=== PATIENT | female | born 1960 | race Caucasian/White ===

== ENCOUNTER 2025-04-13 10:13 | Outpatient (REF) | payer MEDICARE, SELFPAY ==
[2025-04-13 13:22] LABS: Appearance Urine Clear; Glucose Urine UA >=1000 mg/dL (Negative); MANUAL DIFF FLAG NO; PH 5.5 (5.0-9.0); Specific Gravity - Urine 1.025 (1.005-1.025); UMIC TRIGGER UACC YES
[2025-04-13 13:32] LABS: Hematocrit 46.3 % (37.0-47.0); Hemoglobin 15.2 g/dl (12.0-16.0); Imm Gran Abs Auto 0.03 X10*3/uL (0.00-0.03); Imm Gran Pct Auto 0.4 % (0.0-0.4); Lymphocytes Absolute Auto 2.0 X10*3/uL (1.2-4.9); Mean Corpuscular HGB Conc 32.8 g/dl (31.0-35.0); Mean Corpuscular Hemoglobin 28.1 pg (27.0-33.0); Mean Corpuscular Volume 85.6 fL (80.0-98.0); NRBC Abs Auto 0.000 X10*3/uL (0.0-0.012); NRBC Pct Auto 0.0 /100WBC (0.0-0.2); Platelet Count 287 X10*3/uL (160-400); Red Blood Count 5.41 X10*6/uL (4.20-5.50); White Blood Count 8.4 X10*3/uL (4.8-10.8)
[2025-04-13 14:01] LABS: Alanine Aminotransferase 20 U/L (0-31); Albumin Level 4.8 g/dL (3.5-5.0); Alkaline Phosphatase 83 U/L (39-117); Anion Gap 13 (12-20); Aspartate Amino Transferase 22 U/L (5-31); Blood Urea Nitrogen 17 mg/dL (9-16); Calcium 9.8 mg/dL (8.4-10.2); Carbon Dioxide 28 mmol/L (22-29); Chloride 100 mmol/L (96-108); Cholesterol 187 mg/dL (<200); Estimated Glomerular Filt Rate > 60; HDL Cholesterol 51 mg/dL (>40); Magnesium 2.2 mg/dL (1.6-2.6); Potassium 4.3 mmol/L (3.3-5.1); Sodium 137 mmol/L (135-145); Total Protein 7.8 g/dL (6.5-8.0); Triglycerides 136 mg/dL (<150)
[2025-04-13 14:23] LABS: Folate 6.4 ng/mL (> or = 4.0); Vitamin B12 1442 pg/mL (200-900)
[2025-04-13 14:46] LABS: Microalbum/Creatinine Ratio Ur 10.2 ug/mg cr (<30)
[2025-04-14 08:28] LABS: HBS Num1 1.30 mIU/mL (0-7.99); HBsAGNum1 0.46 S/CO (0.00-0.99); HIV Num 1 0.05 S/CO (0.00-0.99); Hepatitis B Surface Antigen Negative (Negative); ~HepC Num1 0.08 S/CO (0.00-0.79); ~Hepatitis B Surface Antibody NONREACTIVE (Nonreactive); ~Hepatitis C Antibody Nonreactive (Nonreactive)
[2025-04-18 10:33] LABS: VITAMIN D (1,25 OH) D3 35 pg/mL; Vit D (1,25-Dihydroxy) Total 35 pg/mL (18-72); Vitamin D (1,25 OH) D2 <8 pg/mL
== END 2025-04-13 10:14 | disposition home or self-care (01) ==
LOC: HO.HKASLDS 10:13
PROVIDERS: PCP Student in an Organized Health Care Education/Training Program; Visit Provider Student in an Organized Health Care Education/Training Program
DX: Z11.4 Encounter for screening for human immunodeficiency virus [HIV] (principal); I25.2 Old myocardial infarction; E11.9 Type 2 diabetes mellitus without complications; I83.90 Asymptomatic varicose veins of unspecified lower extremity; G47.10 Hypersomnia, unspecified; R06.83 Snoring; R53.83 Other fatigue; Z95.5 Presence of coronary angioplasty implant and graft
CPT/HCPCS: 36415; 80053; 80061; 81001; 82043; 82570; 82607; 82652; 82746; 83036; 83735; 84443; 85025; 86706; 86803; 87340; 87389; 99202

== ENCOUNTER 2025-04-13 10:13 | Outpatient (AMB) | payer MEDICARE, SELFPAY ==
--- NOTE | 2025-04-13 10:19 | MHC.PC.OV ---
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, Hypertension Returned Materials Inspector Required: No Accompanied by: Self / Same As Patient Allergies No Known Allergies Allergy (Verified 04/13/25 10:20) Tobacco use date assessed: 04/13/25 Fall risk assessment: 2 + Falls in past year Last assessed Fall Risk: 04/13/25 Dental Screening Dental Screen Date: 04/13/25 Did you have a dental visit in the last 12 months?: Yes Did you have a dental problem in the last 6 months where you did not have access to dental care?: No Was dental information given to patient?: Patient has dentist HPI HPI Comments History of Present Illness Details History of Present Illness The patient is a 64-year-old female presenting with a routine check-up and management of multiple chronic conditions. Type 2 Diabetes Mellitus: - The patient has a history of type 2 diabetes mellitus, managed with metformin and insulin therapy. - She reports frequent urinary tract infections, likely related to her diabetes. - The last hemoglobin A1c was not discussed, but blood work is planned to assess current control. Hypertension: - The patient has a history of hypertension, with elevated blood pressure noted during the visit. - She attributes the elevated reading to stress related to the visit. Gastroesophageal Reflux Disease (GERD): - The patient is on omeprazole for management of GERD. Asthma: - The patient uses fluticasone and salmeterol for asthma management. - She reports infrequent flare-ups and no recent emergency room visits for asthma exacerbations. Myocardial Infarction with stent placement: - The patient has a history of myocardial infarction with four stents placed, the first in 2019 and the most recent in 2021. - She experienced chest heaviness and arm discomfort recently, prompting an emergency room visit, but no acute issues were found. Anxiety and Depression: - The patient is prescribed alprazolam and fluoxetine for anxiety and depression. - She reports infrequent use of alprazolam, primarily during periods of heightened anxiety. Seasonal Allergies: - The patient reports severe seasonal allergies, previously managed with weekly allergy shots. - She has tried various antihistamines without relief. Iron Deficiency Anemia: - The patient has a history of iron deficiency anemia, managed with oral iron supplements twice daily. Varicose Veins: - The patient has varicose veins, which are occasionally itchy and irritating. - She has not seen a vascular surgeon and has difficulty tolerating compression stockings. History of Retinal Detachment: - The patient had surgery for a detached retina and has had regular eye exams since. Urinary Tract Infection (suspected): - The patient suspects a urinary tract infection and has been taking leftover antibiotics. Review of Systems - General: Reports fatigue and poor sleep quality. - Cardiovascular: Reports chest heaviness and arm discomfort recently. Denies recent palpitations or syncope. - Respiratory: Denies recent asthma exacerbations or dyspnea. - Gastrointestinal: Reports GERD managed with medication. Denies recent abdominal pain or changes in bowel habits. - Neurological: Denies recent headaches or dizziness. - Psychiatric: Reports anxiety and depression, managed with medication. Denies recent panic attacks. - Musculoskeletal: Reports recent fall with minor head injury. Denies ongoing pain or mobility issues. - Dermatological: Reports varicose veins with occasional itching. - Hematological: Reports history of iron deficiency anemia. - Allergic/Immunologic: Reports severe seasonal allergies, previously managed with allergy shots. 10-point ROS reviewed and negative except as noted in HPI Past Medical History - Type 2 Diabetes Mellitus, managed with metformin and insulin. - Hypertension, with recent elevated blood pressure noted. - Gastroesophageal Reflux Disease (GERD), managed with omeprazole. - Asthma, managed with fluticasone and salmeterol. - Myocardial Infarction with stent placement, four stents in total. - Anxiety and Depression, managed with alprazolam and fluoxetine. - Seasonal Allergies, previously managed with allergy shots. - Iron Deficiency Anemia, managed with oral iron supplements. - Varicose Veins, with occasional itching. - History of Retinal Detachment, with surgery performed. Health Maintenance - Routine blood work including hemoglobin A1c and lipid panel planned. - Referral to cardiology for follow-up on cardiac history. - Referral to podiatry for annual diabetic foot exam. - Mammogram due in 2023. - Colonoscopy not due for a couple of years, with previous polyps removed. - DEXA scan not due until next year. Physical Exam General: Well-appearing, in no acute distress. Vital signs: Blood pressure elevated today. HEENT: Normocephalic, atraumatic. PERRLA, EOMI. Conjunctiva clear, sclera anicteric. Oropharynx clear, mucous membranes moist. TMs intact bilaterally. Neck: Supple, no lymphadenopathy, no thyromegaly, no JVD or carotid bruits. Cardiovascular: RRR, normal S1/S2, no murmurs, rubs, or gallops. Peripheral pulses 2+ and symmetric. No edema. History of myocardial infarction with four stents placed. Respiratory: Lungs clear to auscultation bilaterally, no wheezes, rales, or rhonchi. Normal effort. Abdomen: Soft, non-tender, non-distended. Normoactive bowel sounds. No hepatosplenomegaly, no masses. MSK: Full range of motion, no joint swelling or deformity. Normal gait. Reports a fall last month with a bruise on the head. Skin: Warm, dry, intact. No rashes, lesions, or pallor. Presence of varicose veins, sometimes irritating or itchy. Neuro: Alert and oriented x3. Cranial nerves II-XII intact. Strength 5/5 throughout. Sensation intact. Reflexes 2+ symmetric. Normal coordination and gait. Psych: Appropriate mood and affect. Normal judgment and insight. Reports anxiety and depression, taking fluoxetine and alprazolam as needed. Plan 1. Type 2 Diabetes Mellitus - Plan to perform routine blood work including hemoglobin A1c to assess current control. - Referral to podiatry for annual diabetic foot exam. 2. Hypertension - Monitor blood pressure and consider lifestyle modifications to manage stress-related elevations. 3. Gastroesophageal Reflux Disease (Gerd) - Continue current management with omeprazole. 4. Asthma - Continue current management with fluticasone and salmeterol. 5. Myocardial Infarction With Stent Placement - Referral to cardiology for follow-up on cardiac history. 6. Anxiety And Depression - Encourage contact with behavioral health for further evaluation and management. 7. Seasonal Allergies - Consider re-evaluation for allergy shots as previous antihistamines were ineffective. 8. Iron Deficiency Anemia - Continue current management with oral iron supplements. 9. Varicose Veins - Consider referral to vascular surgery if symptoms worsen and insurance coverage is confirmed. 10. Urinary Tract Infection (Suspected) - Plan to confirm diagnosis with urinalysis and culture if symptoms persist. Discussion Notes During the visit, we discussed the management of the patient's chronic conditions, including diabetes, hypertension, and asthma. I recommended routine blood work to assess diabetes control and referred the patient to cardiology for follow-up on her cardiac history. We also talked about the importance of managing seasonal allergies and the potential need for allergy shots. I encouraged the patient to contact behavioral health for further evaluation of anxiety and depression. Additionally, we discussed the possibility of a vascular surgery referral for varicose veins if symptoms worsen and insurance coverage is confirmed. Patient was informed and verbally consented to the use of an ambient scribe for clinic note documentation during this visit. Patient Instructions - Follow up with cardiology for cardiac history evaluation. - Schedule routine blood work to monitor diabetes control. - Contact behavioral health for anxiety and depression management. - Consider re-evaluation for allergy shots if seasonal allergies persist. - Monitor blood pressure and manage stress to control hypertension. - Continue taking prescribed medications as directed. Total time spent caring for the patient today was 30 minutes. This includes time spent before the visit reviewing the chart, time spent documenting, and time spent, medications, performing a medically necessary evaluation, counseling on diagnoses, care coordination, ordering appropriate tests. FORMERLY [facility], [facility] Medical History (Updated 04/13/25 @ 10:54 by Sudhir Plaza MD) Fatigue Snoring Varicose veins of ankle Diabetes type 2 History of myocardial infarction Surgical History (Updated 04/13/25 @ 10:42 by Sudhir Plaza MD) History of coronary artery stent placement Family History (Updated 04/13/25 @ 10:33 by Johnson Diaz MA) Father High blood pressure Mother Diabetes High blood pressure Colon cancer Liver cancer Social History (Updated 04/13/25 @ 10:34 by Johnson Diaz MA) Housing: House Alcohol intake: current Alcohol intake frequency: does not drink Patient Tobacco Use Status: Never used Tobacco service: No Current occupational status: retired Cognitive needs: No Hearing needs: No Vision needs: Yes (reading glasses) Questionnaire PHQ-9 Over the last 2 weeks, how often have you been bothered by any of the following problems? 1. Little interest or pleasure in doing things: not at all 2. Feeling down, depressed, or hopeless: not at all 3. Trouble falling or staying asleep, or sleeping too much: several days 4. Feeling tired or having little energy: several days 5. Poor appetite or overeating: several days 6. Feeling bad about yourself - or that you are a failure or have let yourself or your family down: not at all 7. Trouble concentrating on things, such as reading the newspaper or watching television: not at all 8. Moving or speaking so slowly that other people could have noticed. Or the opposite - being so fidgety or restless that you have been moving around a lot more than usual: not at all 9. Thoughts that you would be better off or of hurting yourself in some way: not at all Total score: 3 Source: Developed by Drs. Ryan Corona, Sarah Wood, Rah Loco and colleagues, with an educational martha from [employer]. Thrive Questionnaire I am a: Patient What is your living situation today?: I have a steady place to live Within the past 12 months, did the food you bought not last and you didn't have the money to get more?: Never true Within the past 12 months, did you worry whether your food would run out before you got money to buy more?: Never true Do you have trouble paying for medicines?: No Do you have trouble getting transportation to medical appointments?: No Do you have trouble paying your heating and electricity bill?: No Do you have trouble taking care of your child, family member or friend?: No Are you currently unemployed and looking for a job?: No Are you interested in more education?: No Please select the resources that you would like help with: None Currently or been in a relationship where the following occur: No concerns reported THRIVE Score: 0 AUDIT C Alcohol Use Questionnaire (AUDIT-C) 1. How often do you have a drink containing alcohol?: Never Total Score: 0 MARYJANE-7 AMB Questionnaire MARYJANE-7 Feeling nervous, anxious, or on edge: 0 = Not at all Not being able to stop or control worryin = Not at all Worrying too much about different things: 0 = Not at all Trouble relaxin = Not at all Being so restless that it is hard to sit still: 0 = Not at all Becoming easily annoyed or irritable: 1 = Several days Feeling afraid as if something awful might happen: 1 = Several days Total MARYJANE-7 score (0-4 normal; 5-9 mild; 10-14 moderate; 15-21 severe): 2 Source: Developed by Drs. Ryan Corona, Sarah Wood, Rah Loco and colleagues, with an educational martha from [employer]. Physical exam (Primary Care) Vital Signs: Last Vital Signs Temp 98.2 F 04/13/25 10:22 Pulse 71 04/13/25 10:22 Resp 16 04/13/25 10:22 BP 176/90 H 04/13/25 10:22 Pulse Ox 95 04/13/25 10:22 Oxygen Delivery Method Room Air 04/13/25 10:22 BMI result Body Mass Index 29.9 Tobacco/Smoking Status: Tobacco use Status Tobacco use date assessed 04/13/25 04/13/25 10:37 Patient Tobacco Use Status Never used Tobacco 04/13/25 10:37 PHQ-9: PHQ-9 Score PHQ-9: Total score 3 04/13/25 10:37 Currently or been in a relationship where the following occur: No concerns reported Coding Level of Care Code New Pt Level 4 (80275) Diagnoses Diabetes type 2 E11.9 History of myocardial infarction I25.2 History of coronary artery stent placement Z95.5 Varicose veins of ankle I83.90 Snoring R06.83 Fatigue R53.83 Asthma J45.909 Hypertension I10 GERD (gastroesophageal reflux disease) K21.9 Anxiety and depression F41.9; F32.A Seasonal allergies J30.2 Iron deficiency anemia D50.9 History of retinal detachment Z86.69 Dysuria R30.0 Assessment & Plan Assessment & Plan (1) Diabetes type 2: Code(s): E11.9 - Type 2 diabetes mellitus without complications Category: Medical (2) History of myocardial infarction: Code(s): I25.2 - Old myocardial infarction Category: Medical (3) History of coronary artery stent placement: Code(s): Z95.5 - Presence of coronary angioplasty implant and graft Category: Surgical (4) Varicose veins of ankle: Code(s): I83.90 - Asymptomatic varicose veins of unspecified lower extremity Category: Medical (5) Snoring: Code(s): R06.83 - Snoring Category: Medical (6) Fatigue: Code(s): R53.83 - Other fatigue Category: Medical (7) Asthma: Code(s): J45.909 - Unspecified asthma, uncomplicated (8) Hypertension: Code(s): I10 - Essential (primary) hypertension (9) GERD (gastroesophageal reflux disease): Code(s): K21.9 - Gastro-esophageal reflux disease without esophagitis (10) Anxiety and depression: Code(s): F41.9 - Anxiety disorder, unspecified; F32.A - Depression, unspecified (11) Seasonal allergies: Code(s): J30.2 - Other seasonal allergic rhinitis (12) Iron deficiency anemia: Code(s): D50.9 - Iron deficiency anemia, unspecified (13) History of retinal detachment: Code(s): Z86.69 - Personal history of other diseases of the nervous system and sense organs (14) Dysuria: Code(s): R30.0 - Dysuria Plan Orders: Orders Complete Blood Count Auto Diff Today Z13.9 - Encounter for screening, unspecified Hemoglobin A1c Today Z13.9 - Encounter for screening, unspecified Hepatitis B Surface Antibody Today Z13.9 - Encounter for screening, unspecified Hepatitis B Surface Antigen Today Z13.9 - Encounter for screening, unspecified Hepatitis C Antibody Today Z13.9 - Encounter for screening, unspecified HIV Ab/Ag Today Z13.9 - Encounter for screening, unspecified TSH reflex Free T4 Today Z13.9 - Encounter for screening, unspecified Microalbumin, Random (w Creat) Today Z13.9 - Encounter for screening, unspecified Vitamin D 1,25 dihydroxy Today Z13.9 - Encounter for screening, unspecified Comprehensive Met. Panel Today Z13.9 - Encounter for screening, unspecified Lipid Panel Today Z13.9 - Encounter for screening, unspecified Magnesium Today Z13.9 - Encounter for screening, unspecified UA CC w/rflx Micro + Cult Today Z13.9 - Encounter for screening, unspecified Vitamin B12 and Folate Today Z13.9 - Encounter for screening, unspecified MM screening mammo BI Today Z12.31 - Encounter for screening mammogram for malignant neoplasm of breast RT home sleep study Today G47.10 - Hypersomnia, unspecified, R06.83 - Snoring, R53.83 - Other fatigue Referrals Vascular Surgery Referral I83.90 - Asymptomatic varicose veins of unspecified lower extremity Cardiology Referral I25.2 - Old myocardial infarction, Z95.5 - Presence of coronary angioplasty implant and graft Podiatry Referral E11.9 - Type 2 diabetes mellitus without complications Medications: New atorvastatin 80 mg PO DAILY 90 tabs 0RF fluoxetine 20 mg PO DAILY 90 caps 0RF carvedilol 6.25 mg PO BID 180 tabs 0RF losartan 25 mg PO DAILY 90 tabs 0RF
[2025-04-13 10:22] VITALS: BP 176/90; PULSE 71; RESP 16; TEMP 36.8; O2SAT 95; BMI 29.9
--- OUTSIDE RECORDS SUMMARY | 2025-04-13 12:11 | XMS_ITS | Continuity of Care Document ---
[facility] Address [address] [address] Problems Condition ICD9 code ICD10 code SNOMED code Start Date End Date S tatus Encounter for screening for other metabolic disorders Z13.228 Results No Results Allergies, adverse reactions, alerts No known allergies and adverse reactions Medications No administered medications reported Vital Signs No vital signs reported Social History No smoking Hx information available
--- OUTSIDE RECORDS SUMMARY | 2025-04-13 12:11 | XMS_ITS | Clinical Summary ---
Author Organization [facility] Address [address] [place] [address] Care Team Providers Care Senior Analytic Consultant Name Role Phone Aleksandra Sanchez MD Primary Care Provider [phone] Surgical History Surgery Date Site/Laterality Comments COLONOSCOPY 09/21/2016 PROCEDURE: HISTORICAL COLONOSCOPY; COMMENT: Sessile polyp, diverticulosis. Repeat [address] White HERNIA REPAIR 10/29/2016 PROCEDURE: HISTORICAL HERNIA REPAIR/DEEPAK; COMMENT: repair multiple incarcerated recurrent incisonal hernias SECTION PROCEDURE: HISTORICAL UPPER GASTROINTESTINAL ENDOSCOPY 09/21/2016 PROCEDURE: UPPER GI ENDOSCOPY/EXAM; COMMENT: Normal HERNIA REPAIR 11/2014 PROCEDURE: HISTORICAL HERNIA REPAIR/UMB PARTIAL HYSTERECTOMY 1999 PROCEDURE: IA SUPRACERVICAL ABDL HYSTER W/WO RMVL TUBE OVARY; COMMENT: for menorrhagia. date approximate. OVARIES WERE LEFT IN PLACE OTHER SURGICAL HISTORY 06/10/2019 PROCEDURE: ---- OTHER ----; COMMENT: Salvador. PCI s/p ROSELINE x2 to RCA mid and distal Medical History Medical History Date Comments DM (diabetes mellitus), type 2 with renal complications (CMS/HCC V24, CMS/HCC V28) 10/02/2017 DX:DM (diabetes mellitus), t ype 2 with renal complications (HCC) Proteinuria 10/02/2017 DX:Proteinuria Iron deficiency anemia due t o chronic blood loss 10/02/2017 DX:Iron deficiency anemia du e to chronic blood loss Depression 10/02/2017 DX:Depression Asthma 10/02/2017 DX:Asthma GERD with esophagitis 10/02/2017 DX:GERD wi th esophagitis Hypertension 10/02/2017 DX:Hypertension Adrenal nodule (CMS/HCC V24) 10/02/2017 DX: Adrenal nodule (HCC); COMMENT: 07/2016 CT, rec f/u 6-12 mo's Diverticulosis 10/02/2017 DX:Diverticulosi s Fatty liver 10/02/2017 DX:Fatty liver Colon polyp 10/02/2017 DX:Colon polyp STEMI (ST elevation myocardi al infarction) (CMS/HCC V24, CMS/HCC V28) 06/10/2019 DX:STEMI (ST el evation myocardial infarction) ([facility]); COMMENT: Salvador PCI. 99% mid RCA occlusion and 80% distal RCA occulsion and underwent PCI with ROSELINE x2. Oumou was also found to have additional 70% occlusion to the LAD which will be treated with staged PCI. Family History Medical History Relation Name Comments No Known Problems Aunt Hypertension Brother Other: Other Brother detached retina Brain Aneurysm Father of aorti c aneurysm, Hyperlipidemia,Hypertension Colon cancer Mother Diabetes, Hyper tension, Hypothyroidism, CVA Glaucoma Mother No Known Problems Other Asthma Sister Hypertension Sister Macular degeneration Sister No Known Problems Uncle Blindness Neg Hx Breast cancer Neg Hx Cataracts Neg Hx Strabismus Neg Hx Relation Name Status Comments Aunt Brother Father Mother Other Sister Uncle Social History Tobacco Use Types Packs/Day Years Used Date Smoking Tobacco: Former Cigarettes Smokeless Tobacco: Never Alcohol Use Standard Drinks/Week Comments No 0 (1 standard drink = 0.6 oz pur e alcohol) Comments Unknown Sex and Gender Information Value Date Recorded Sex Assigned at Not on file Legal Sex Female 4:36 PM EST Gender Identity Not on file Sexual Orientation Not on file Obstetrics History Plan of Treatment Health Maintenance Due Date Last Done Comments Diabetes: Annual GFR (Glomerular Filtration Rate) 1960 Diabetes: Annual Foot Exam 1970 Diabetes: Annual Retina Eye Exam 1970 Hepatitis A Vaccines (1 of 2 - Risk 2-dose series) 1979 Cervical Cancer Screening: P ap Smear 1981 Zoster Vaccines (1 of 2) 2010 Pneumococcal Vaccine: 50+ Years (2 of 2 - PCV) 09/01/2019 09/01/2018 Breast Cancer Screening 03/24/2020 03/24/20 18, 02/21/2017 Hepatitis B Vaccines (1 of 3 - Risk 3-dose series) 2020 RSV Immunization Adult Patients (1 - Risk 60-74 years 1-dose series) 2020 Cholesterol Screening (Lipid Panel) 05/09/2024 Diabetes: Annual Urine Albumin-Creatinine Ratio (uACR) 05/09/2024 Diabetes: Blood Sugar Contro l Test (HGBA1C) 05/09/2024 HIV Screening 05/09/2024 Hepatitis C Screening 05/09/2024 Hypertension/CHF/CAD Annual BMP Blood Test 05/09/2024 Social Influencers of Health Screening 05/09/2024 Depression Screening 07/08/2024 COVID-19 Vaccine (1 - 2023-2 5 season) 2025 Influenza Vaccine (#1) 2025 DTaP,Tdap,and Td Vaccines (2 - Td or Tdap) 09/01/2028 09/01/2018 Colorectal Cancer Screening: Colonoscopy 09/17/2034 09/17/2024 HIB Vaccines Aged Out No longer eligi ble based on patient's age to complete this topic HPV Vaccines Aged Out No longer eligi ble based on patient's age to complete this topic IPV Vaccines Aged Out No longer eligi ble based on patient's age to complete this topic MMR Vaccines Aged Out No longer eligi ble based on patient's age to complete this topic Meningococcal ACWY Vaccine Aged Out N o longer eligible based on patient's age to complete this topic Meningococcal B Vaccine Aged Out No l onger eligible based on patient's age to complete this topic RSV Immunization Patients Under 20 months Aged Out No longer eligible b ased on patient's age to complete this topic Varicella Vaccines Aged Out No longer eligible based on patient's age to complete this topic Procedures Procedure Name Priority Date/Time Associated Diagnosis Comments EXTERNAL COLONOSCOPY REPORT Routine 09/17/2024 3:10 PM EDT SCR MAMMO BI INCL CAD Routine 03/24/2018 8:11 AM EDT Encounter for screening mammogram for malignant neoplasm of breast from Last 3 Months or Most Recently Relevant to Health Maintenance Results * External Colonoscopy Report (09/17/2024 3:10 PM EDT) Anatomical Region Laterality Modality Endoscopy us Historical Provider GI~PROCEDURE ORDERABLES F inal Result * SCR MAMMO BI INCL CAD (03/24/2018 8:11 AM EDT) Anatomical Region Laterality Modality Radiographic Isabella ging 02/21/2017 8:33 AM EDT Narrative 03/24/2018 8:58 AM EDT This is a summary report. The complete report is available in the patient's medical record. If you cannot access the medical record, please contact the sending organization for a detailed fax or copy. Full field digital screening mammography, reviewed with CAD and compared to previous. The breasts are composed of fatty and fibroglandular tissue. No suspicious mass, architectural distortion or suspicious calcifications are identified. IMPRESSION: : No mammographic evidence of malignancy. BIRADS 1-Negative; N. 5 year breast cancer risk assessment 0.9 % Lifetime breast cancer risk assessment 5.7 % Breast cancer risk category Low (<15%) Procedure Note Mynor Fortune MD - 06/26/2022 This is a summary report. The complete report is available in thepatient's medical record. If you cannot access the medical record, pleasecontact the sending organization for a detailed fax or copy. Full field digital screening mammography, reviewed with CAD and comparedto previous. The breasts are composed of fatty and fibroglandular tissue.No suspicious mass, architectural distortion or suspicious calcificationsare identified. IMPRESSION: : No mammographic evidence of malignancy. BIRADS 1-Negative; N. 5 year breast cancer risk assessment 0.9 % Lifetime breast cancer risk assessment 5.7 % Breast cancer risk category Low (<15%) Aleksandra Sanchez MD IMG XR PROCEDURES Final Result from Last 3 Months or Most Recently Relevant to Health Maintenance Care Teams Senior Analytic Consultant Relationship Specialty Start Date End Date Aleksandra Sanchez MD PCP - General Internal Medicine 08/28/17
== END 2025-04-13 11:00 | disposition home or self-care (01) ==
LOC: HO.HMCFMS 10:15
PROVIDERS: PCP Student in an Organized Health Care Education/Training Program; Visit Provider Student in an Organized Health Care Education/Training Program
DX: E11.9 Type 2 diabetes mellitus without complications (principal); I25.2 Old myocardial infarction; Z95.5 Presence of coronary angioplasty implant and graft; I83.90 Asymptomatic varicose veins of unspecified lower extremity; R06.83 Snoring; R53.83 Other fatigue; J45.909 Unspecified asthma, uncomplicated; I10 Essential (primary) hypertension; K21.9 Gastro-esophageal reflux disease without esophagitis; F41.9 Anxiety disorder, unspecified; F32.A Depression, unspecified; J30.2 Other seasonal allergic rhinitis; D50.9 Iron deficiency anemia, unspecified; Z86.69 Personal history of other diseases of the nervous system and sense organs; R30.0 Dysuria

== ENCOUNTER 2025-04-27 13:09 | Outpatient (AMB) | payer MEDICARE, SELFPAY ==
[2025-04-27 13:13] VITALS: BP 135/74; PULSE 70; RESP 16; TEMP 36.7; O2SAT 95; BMI 30.1
--- NOTE | 2025-04-27 13:13 | A.OFFPC_ITS ---
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 Accompanied by: Self / Same As Patient Allergies No Known Allergies Allergy (Verified 04/27/25 13:14) Tobacco use date assessed: 04/27/25 Fall risk assessment: 2 + Falls in past year Last assessed Fall Risk: 04/13/25 Dental Screening Dental Screen Date: 04/27/25 Did you have a dental visit in the last 12 months?: Yes Did you have a dental problem in the last 6 months where you did not have access to dental care?: No Was dental information given to patient?: Patient has dentist HPI HPI Comments History of Present Illness Details Consent Patient was informed and verbally consented to the use of an ambient scribe for clinic note documentation during this visit. History of Present Illness The patient is a 64-year-old female presenting for follow-up on her diabetes management and to discuss lab results. Type 2 Diabetes Mellitus: The patient has a history of type 2 diabetes mellitus, with her last hemoglobin A1c recorded at 6.9%. She has been managing her condition with insulin, metformin, and tirzepatide (Mounjaro), but has recently stopped taking Farxiga due to running out of the medication. Her diabetes management has been complicated by a previous A1c level over 12%, which she self-managed by titrating her insulin dose. The patient reports no recent hypoglycemic events and her morning blood glucose was last recorded at 130 mg/dL. Detached Retina: The patient experienced a detached retina in her right eye, which required surgical intervention in August. She reports incomplete vision recovery post- surgery. Hyperlipidemia: The patient has hyperlipidemia with an LDL level of 109 mg/dL, despite being on the maximum dose of atorvastatin and ezetimibe. She has been advised to consider lifestyle modifications to further reduce her LDL levels. History of Myocardial Infarction: The patient has a history of myocardial infarction, which occurred in 2019. Following the event, she was started on Farxiga for cardiovascular protection. Surgical History: - Retinal detachment surgery on the righ t eye in August Medications: - Insulin 14 units at night for diabetes management - Metformin 500 mg twice daily for diabe annette management - Tirzepatide (Mounjaro) 15 mg for diabe annette management - Atorvastatin 80 mg for hyperlipidemia - Ezetimibe 10 mg for hyperlipidemia - Farxiga (recently stopped due to runni ng out) Social History: - The patient recently [facility], which has impacted her diabetes management. Diagnostic Results: - Labs: Hemoglobin A1c increased from 6. 4% to 6.9% - Labs: LDL cholesterol at 109 mg/dL - Labs: Vitamin B12 level at 1442 pg/mL - Labs: Potassium level at 4.3 mmol/L Review of Systems - Endocrine: Reports stable blood glucos e levels, denies hypoglycemic events. - Ophthalmologic: Reports incomplete vis ion recovery in the right eye post- retinal detachment surgery. 10-point ROS reviewed and negative excep t as noted in HPI Past Medical History - Type 2 Diabetes Mellitus - Detached Retina - Hyperlipidemia - History of Myocardial Infarction - Tourette Syndrome Health Maintenance - Recommended Hepatitis B vaccination se [facility] for type 2 diabetics Physical Exam General: Well-appearing, in no acute distress. Vital signs: Within normal limits. HEENT: Normocephalic, atraumatic. PERRLA, EOMI. Conjunctiva clear, sclera anicteric. Oropharynx clear, mucous membranes moist. TMs intact bilaterally. Neck: Supple, no lymphadenopathy, no thyromegaly, no JVD or carotid bruits. Cardiovascular: RRR, normal S1/S2, no murmurs, rubs, or gallops. Peripheral pulses 2+ and symmetric. No edema. Respiratory: Lungs clear to auscultation bilaterally, no wheezes, rales, or rhonchi. Normal effort. Abdomen: Soft, non-tender, non-distended. Normoactive bowel sounds. No hepatosplenomegaly, no masses. MSK: Full range of motion, no joint swelling or deformity. Normal gait. Skin: Warm, dry, intact. No rashes, lesions, or pallor. Neuro: Alert and oriented x3. Cranial nerves II-XII intact. Strength 5/5 throughout. Sensation intact. Reflexes 2+ symmetric. Normal coordination and gait. Psych: Appropriate mood and affect. Normal judgment and insight. Plan 1. Type 2 Diabetes Mellitus - Plan to discontinue insulin and contin ue metformin and tirzepatide (Mounjaro). - Reintroduce Farxiga for additional gly cemic control and cardiovascular benefits. - Repeat hemoglobin A1c in three months to assess glycemic control. 2. Detached Retina - Referral to technical fellow for follow -up on retinal detachment surgery. 3. Hyperlipidemia - Continue atorvastatin and ezetimibe th erapy. - Encourage lifestyle modifications to f urther reduce LDL levels. 4. History Of Myocardial Infarction - Continue Farxiga for cardiovascular pr otection. Discussion Notes I discussed with the patient the plan to discontinue insulin due to her stable A1c levels and continue with metformin and tirzepatide (Mounjaro). We also talked about reintroducing Farxiga for its benefits in glycemic control and cardiovascular protection. I recommended a follow-up with an technical fellow for her retinal detachment and emphasized the importance of lifestyle changes to manage her hyperlipidemia. Patient Instructions - Stop taking insulin as discussed. - Continue taking metformin and tirzepat efrain (Mounjaro) as prescribed. - Reintroduce Farxiga as per prescriptio n. - Schedule a follow-up appointment with an technical fellow for your eye. - Focus on lifestyle changes to help red uce LDL cholesterol levels. Medical Decision Making The decision to discontinue insulin was based on the patient's stable A1c levels and the presence of effective oral medications like metformin and tirzepatide (Mounjaro). Reintroducing Farxiga was considered beneficial for both glycemic control and cardiovascular protection, given the patient's history of myocardial infarction. Lifestyle modifications were emphasized to manage hyperlipidemia, as the patient is already on maximum lipid-lowering therapy. Total time spent caring for the patient today was 30 minutes. This includes time spent before the visit reviewing the chart, time spent documenting, and time spent reviewing laboratory results, diagnostic imaging, medications, performing a medically necessary evaluation, counseling on diagnoses, care coordination, ordering appropriate tests, ordering appropriate medications. [facility] Medical History (Updated 04/27/25 @ 13:25 by Sudhir Plaza MD) Detached retina, right Fatigue Snoring Varicose veins of ankle Diabetes type 2 History of myocardial infarction Surgical History (Updated 04/13/25 @ 10:42 by Sudhir Plaza MD) History of coronary artery stent placement Family History (Updated 04/13/25 @ 10:33 by Johnson Diaz MA) Father High blood pressure Mother Diabetes High blood pressure Colon cancer Liver cancer Social History (Updated 04/13/25 @ 10:34 by Johnson Diaz MA) Housing: House Alcohol intake: current Alcohol intake frequency: does not drink Patient Tobacco Use Status: Never used Tobacco service: No Current occupational status: retired Cognitive needs: No Hearing needs: No Vision needs: Yes (reading glasses) Questionnaire Thrive Questionnaire Date Thrive assessed: 04/13/25 I am a: Patient What is your living situation today?: I have a steady place to live Within the past 12 months, did the food you bought not last and you didn't have the money to get more?: Never true Within the past 12 months, did you worry whether your food would run out before you got money to buy more?: Never true Do you have trouble paying for medicines?: No Do you have trouble getting transportation to medical appointments?: No Do you have trouble paying your heating and electricity bill?: No Do you have trouble taking care of your child, family member or friend?: No Do you have trouble with day-to-day activities such as bathing, preparing meals, shopping, managing finances, etc.?: No Are you currently unemployed and looking for a job?: No Are you interested in more education?: No Please select the resources that you would like help with: None Currently or been in a relationship where the following occur: No concerns reported THRIVE Score: 0 AUDIT C Alcohol Use Questionnaire (AUDIT-C) 3. How often do you have six or more drinks on one occasion?: Never Total Score: 0 Physical exam (Primary Care) Vital Signs: Last Vital Signs Temp 98.1 F 04/27/25 13:13 Pulse 70 04/27/25 13:13 Resp 16 04/27/25 13:13 BP 135/74 04/27/25 13:13 Pulse Ox 95 04/27/25 13:13 Oxygen Delivery Method Room Air 04/27/25 13:13 BMI result Body Mass Index 30.1 Tobacco/Smoking Status: Tobacco use Status Tobacco use date assessed 04/27/25 04/27/25 13:17 Patient Tobacco Use Status Never used Tobacco 04/27/25 13:13 Thrive Assessment: Date of Thrive Assessment Date Thrive assessed 04/13/25 04/27/25 13:13 Currently or been in a relationship where the following occur: No concerns reported Coding Level of Care Code Est Pt Level 4 (32024) Diagnoses Diabetes type 2 E11.9 Detached retina, right H33.21 History of myocardial infarction I25.2 Hyperlipidemia E78.5 Assessment & Plan Assessment & Plan (1) Diabetes type 2: Code(s): E11.9 - Type 2 diabetes mellitus without complications Category: Medical (2) Detached retina, right: Code(s): H33.21 - Serous retinal detachment, right eye Category: Medical (3) History of myocardial infarction: Code(s): I25.2 - Old myocardial infarction Category: Medical (4) Hyperlipidemia: Code(s): E78.5 - Hyperlipidemia, unspecified Plan Orders: Referrals Ophthalmology Referral H33.21 - Serous retinal detachment, right eye Medications: New dapagliflozin propanediol (Farxiga) 10 mg PO DAILY 90 tabs 0RF E11.9 - Type 2 diabetes mellitus without complications
== END 2025-04-27 13:39 | disposition home or self-care (01) ==
LOC: HO.HMCFMS 13:10
PROVIDERS: PCP Student in an Organized Health Care Education/Training Program; Visit Provider Student in an Organized Health Care Education/Training Program
DX: E11.9 Type 2 diabetes mellitus without complications (principal); H33.21 Serous retinal detachment, right eye; I25.2 Old myocardial infarction; E78.5 Hyperlipidemia, unspecified

== ENCOUNTER → 2025-04-27 13:09 | Outpatient (BNVA) | payer MEDICARE, SELFPAY | PROVIDERS: Visit Provider Student in an Organized Health Care Education/Training Program | DX: E11.9 Type 2 diabetes mellitus without complications (principal); H33.21 Serous retinal detachment, right eye; E78.5 Hyperlipidemia, unspecified; I25.2 Old myocardial infarction; Z79.4 Long term (current) use of insulin; Z79.84 Long term (current) use of oral hypoglycemic drugs; Z79.85 Long-term (current) use of injectable non-insulin antidiabetic drugs; Z79.899 Other long term (current) drug therapy | CPT/HCPCS: 99212 ==

== ENCOUNTER 2025-04-29 11:18 | Outpatient (AMB) | payer MEDICARE, SELFPAY ==
--- NOTE | 2025-04-29 11:23 | A.OFFVIS_ITS ---
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 States she has left leg pain and cramping at times. 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 Comp laints include pain over varicosities, swelling of lower extremities, cramping, fatigue, and heaviness of the lower extremities. It has been affecting there daily activities including walking. It is noted more so in left leg. In particular varicosities in the left calf. She has been a diabetic for greater than 30 years. She is a nonsmoker but does have a prior history of smoking quit 30 years prior. In addition she does have coronary artery disease with 2 prior MIs dating back to 2019 in 2021. Patient denies any previous venous surgery or injections. Patient denies any history of DVT/ PE. Patient denies any history of phlebitis. Trial of compression includes - [id number] They now present for vascular evaluation regarding their varicose veins. [facility] Medical History Detached retina, right Fatigue Snoring Varicose veins of ankle Diabetes type 2 History of myocardial infarction Surgical History History of coronary artery stent placement Family History Father High blood pressure Mother Diabetes High blood pressure Colon cancer Liver cancer Social History Housing: House Alcohol intake: current Alcohol intake frequency: does not drink Patient Tobacco Use Status: Never used Tobacco service: No Current occupational status: retired Cognitive needs: No Hearing needs: No Vision needs: Yes (reading glasses) Review of Systems Const Reports as per HPI ENT Reports no additional complaints Card Denies chest pain, Denies chest pain at rest and Denies chest pain with activity Resp Denies chest congestion and Denies cough GI Reports no additional complaints Musc Details: pain over varicosities, aching of lower extremities, swelling, cramping, heaviness and tiredness, itching Denies abnormal gait Skin/Breast Reports pruritus and Denies wounds Neuro Reports no additional complaints and Denies abnormal gait Psych Denies no additional complaints Physical Exam Const General: cooperative, healthy appearing and comfortable Orientation/consciousness: oriented to person, oriented to place and oriented to time Neck Carotids: no bruits Chest Chest palpation & inspection: normal inspection of the chest and normal palpation of entire chest wall Resp Effort & Inspection: normal respiratory effort and able to speak in complete sentences Cardio Rate: regular rate Heart sounds: S1 normal heart sound present and S2 normal heart sound present Peripheral pulses: Peripheral pulses 2+ throughout GI Inspection: Yes normal to inspection Skin Other: +2 edema, large rope-like varicosities greater than 4 mm left calf CEAP Classification C4 - skin color changes Ep - Etiology Primary As - superficial veins P - reflux General skin exam: dry skin Neuro General: oriented to person, oriented to place and oriented to time Extrem Right lower extremity: full ROM, normal capillary refill and edema Left lower extremity: full ROM, normal capillary refill and edema Psych Mental Status: mental status grossly normal Assessment & Plan Assessment & Plan (1) Varicose veins of left lower extremity with inflammation: Code(s): I83.12 - Varicose veins of left lower extremity with inflammation Category: Medical Plan: In short, the patient has evidence of venous insufficiency. I have discussed the pathophysiology with the patient. In addition I have provided informational material regarding venous disease to the patient. We have discussed conservative measures including compression, elevation, and exercise. I have also provided a handout regarding appropriate use of compression stockings and where to purchase good compression stockings as well. I have taken the liberty of ordering venous insufficiency testing with the patient. They will follow up with me after testing. The patient had an opportunity to ask questions regarding the treatment plan. All questions were answered. Imaging studies, laboratory studies and physical exam results were discussed and reviewed in detail. No major barriers to understanding were identified. The patient expressed understanding and agreement with the above treatment plan. The patient is aware they should contact our office by phone for worsening of the current condition or the appearance of new symptoms. Thank you for allowing me to participate in the vascular care of this patient. If you have any questions or concerns regarding the treatment for the above condition please do not hesitate to contact me. The office telephone contact is [phone]. This note is constructed using voice recognition software. While every effort has been made to ensure accuracy, soil science technical officer errors may have been included. Thank you for allowing me to participate in the care of your patient. Yours sincerely, Hank Grider MD, FACS, R.P.V.I. Orders: Orders US venous duplex LE BI Today I83.12 - Varicose veins of left lower extremity with inflammation Coding Level of Care Code New Pt Level 4 (44697) Diagnoses Varicose veins of left lower extremity with inflammation I83.12
--- OUTSIDE RECORDS SUMMARY | 2025-04-29 14:26 | XMS_ITS | Clinical Summary ---
Author Organization [facility] Address [address] [place] [address] Care Team Providers Care Machine Accountant Name Role Phone Aleksandra Sanchez MD Primary Care Provider [phone] Surgical History Surgery Date Site/Laterality Comments COLONOSCOPY 09/21/2016 PROCEDURE: HISTORICAL COLONOSCOPY; COMMENT: Sessile polyp, diverticulosis. Repeat [address] White HERNIA REPAIR 10/29/2016 PROCEDURE: HISTORICAL HERNIA REPAIR/DEEPAK; COMMENT: repair multiple incarcerated recurrent incisonal hernias SECTION PROCEDURE: HISTORICAL UPPER GASTROINTESTINAL ENDOSCOPY 09/21/2016 PROCEDURE: UPPER GI ENDOSCOPY/EXAM; COMMENT: Normal HERNIA REPAIR 11/2014 PROCEDURE: HISTORICAL HERNIA REPAIR/UMB PARTIAL HYSTERECTOMY 1999 PROCEDURE: DE SUPRACERVICAL ABDL HYSTER W/WO RMVL TUBE OVARY; [...] 06/10/2019 DX:STEMI (ST el evation myocardial infarction) ([facility]); COMMENT: Salvador PCI. 99% mid RCA occlusion [...] Cervical Cancer Screening: P ap Smear 1981 RSV Immunization Adult Patients (1 - Risk 50-74 years 1-dose series) 2010 Zoster Vaccines (1 of 2) 2010 Pneumococcal Vaccine: 50+ Years (2 of 2 - PCV) 09/01/2019 09/01/2018 Breast Cancer Screening 03/24/2020 03/24/20 18, 02/21/2017 Hepatitis B Vaccines (1 of 3 - Risk 3-dose series) 2020 Cholesterol Screening (Lipid Panel) 05/09/2024 [...] Recently Relevant to Health Maintenance Care Teams Machine Accountant Relationship Specialty Start Date End Date Aleksandra Sanchez MD PCP - General Internal Medicine 08/28/17
== END 2025-04-29 12:16 | disposition home or self-care (01) ==
LOC: HO.HVS 11:19
PROVIDERS: Visit Provider Surgery Vascular Surgery
DX: I83.12 Varicose veins of left lower extremity with inflammation (principal)
CPT/HCPCS: 99204

== ENCOUNTER → 2025-04-29 11:18 | Outpatient (BNVA) | payer MEDICARE, SELFPAY | PROVIDERS: Visit Provider Surgery Vascular Surgery | DX: M79.605 Pain in left leg (principal); I83.12 Varicose veins of left lower extremity with inflammation; E11.9 Type 2 diabetes mellitus without complications | CPT/HCPCS: 99202 ==

== ENCOUNTER 2025-05-05 12:45 | Outpatient (AMB) | payer MEDICARE, SELFPAY ==
[2025-05-05 13:03] VITALS: BMI 30.1
--- NOTE | 2025-05-05 13:03 | A.OFFVIS_ITS ---
Vital Signs 05/05/25 13:03 Height 5 ft 3 in Weight 170 lb BMI 30.1 Intake Visit Reasons: diabetic foot exam Intake Note: Sarah is a 64 year old female who presents to the office today for a new patient visit referred by his PCP Dr. Plaza for a diabetic foot exam. Pt states her glucose was 130 a couple of days ago and her last known A1C was 6.9%. She experiences occasional numbness and tingling in her feet without burning. she denies any history of wound or amputation to her feet and no history of back injuries. She is not taking gabapentin at this time Allergies No Known Allergies Allergy (Verified 04/29/25 11:27) HPI HPI diabetic foot exam: Details: The patient is a 64-year-old female past medical history of diabetes mellitus type 2, CAD, presenting for initial diabetic foot evaluation. The patient has a history of diabetes mellitus for over 35 years and was recently taken off insulin therapy. She has not previously seen a electric truck driver, and this visit is part of her diabetes management plan to prevent complications. The patient reports current symptoms of severe neuropathy such as numbness or tingling in the feet. She has not tried gabapentin or other treatment thus far. She does complain of pain and callus buildup to her left foot. [facility] Medical History Detached retina, right Fatigue Snoring Varicose veins of ankle Diabetes type 2 History of myocardial infarction Surgical History History of coronary artery stent placement Family History Father High blood pressure Mother Diabetes High blood pressure Colon cancer Liver cancer Social History Housing: House Alcohol intake: current Alcohol intake frequency: does not drink Patient Tobacco Use Status: Never used Tobacco service: No Current occupational status: retired Cognitive needs: No Hearing needs: No Vision needs: Yes (reading glasses) Review of Systems Const All systems reviewed & are unremarkable except as noted in HPI and below Physical Exam Vital Signs: BMI result Body Mass Index 30.1 Extrem Other: *Bilateral Lower Extremity Focused Diabetic Foot Exam Vascular: DP/PT 2/4, CFT<3s to digits, TG warm to cool, no pedal edema, pedal hair absent Derm: Skin: Hyperkeratotic lesion to the sub 2nd metatarsal left foot Interdigital spaces: Clear, no maceration or fungal infection. Nails: No onychomycosis, paronychia, or ingrown nails. Neuro: [place]-ernie monofilament (10g) test 10/10 intact to right foot, 10/10 intact to left foot. Msk: Moderate arch type. Deformities: No evidence of hammertoes, bunions, Charcot changes, or other structural abnormalities. Muscle strength: 5/5 in all muscle groups. Gait: Normal, no antalgic or steppage gait observed. Footwear Assessment: Shoes inspected; appropriate fit, no excessive wear, or foreign objects noted. Office Procedures AMB Debridement/Avulsion Podia Details: Procedure: Callus debridement Location: Left foot, 1 lesion Anesthesia: N/A Description: The affected area was cleansed with an antiseptic solution. Using a sterile #15 blade, the hyperkeratotic tissue was radially debrided from the foot. All callused tissue was removed down to normal skin without causing bleeding or discomfort. The area was inspected for underlying ulceration or infection. Patient tolerated the procedure well. No complications noted. Tolerance: Patient tolerated procedure well, no immediate complications. 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 No loss of protective sensation or peripheral arterial disease. No plans for further testing/referrals for non-invasive vascular studies. Patient is at low risk for diabetic foot complications at this time. Recommendations: Continue routine foot care and daily self-inspection. Recommend moisturizing daily. Recommend supportive proper fitting shoe-wear. The patient may require diabetic shoes in the future. Reinforced diabetic foot education and risks from peripheral neuropathy. 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
--- OUTSIDE RECORDS SUMMARY | 2025-05-05 16:06 | XMS_ITS | Clinical Summary ---
Author Organization [facility] Address [address] [place] [address] Care Team Providers Care Admissions Director Name Role Phone Aleksandra Sanchez MD Primary Care Provider [phone] Surgical History Surgery Date Site/Laterality Comments COLONOSCOPY 09/21/2016 PROCEDURE: HISTORICAL COLONOSCOPY; COMMENT: Sessile polyp, diverticulosis. Repeat [address] White HERNIA REPAIR 10/29/2016 PROCEDURE: HISTORICAL HERNIA REPAIR/DEEPAK; COMMENT: repair multiple incarcerated recurrent incisonal hernias SECTION PROCEDURE: HISTORICAL UPPER GASTROINTESTINAL ENDOSCOPY 09/21/2016 PROCEDURE: UPPER GI ENDOSCOPY/EXAM; COMMENT: Normal HERNIA REPAIR 11/2014 PROCEDURE: HISTORICAL HERNIA REPAIR/UMB PARTIAL HYSTERECTOMY 1999 PROCEDURE: [place] SUPRACERVICAL ABDL HYSTER W/WO RMVL TUBE OVARY; [...] 06/10/2019 DX:STEMI (ST el evation myocardial infarction) ([facility]); COMMENT: Salvador PCI. 99% mid RCA occlusion [...] Recently Relevant to Health Maintenance Care Teams Admissions Director Relationship Specialty Start Date End Date Aleksandra Sanchez MD PCP - General Internal Medicine 08/28/17
== END 2025-05-05 13:54 | disposition home or self-care (01) ==
LOC: HO.HPODS 12:46
PROVIDERS: PCP Student in an Organized Health Care Education/Training Program; Visit Provider Student in an Organized Health Care Education/Training Program
DX: E11.9 Type 2 diabetes mellitus without complications (principal); M77.41 Metatarsalgia, right foot; M77.42 Metatarsalgia, left foot; Z79.4 Long term (current) use of insulin
CPT/HCPCS: 11055; 99204

== ENCOUNTER → 2025-05-05 12:45 | Outpatient (BNVA) | payer MEDICARE, SELFPAY | PROVIDERS: PCP Student in an Organized Health Care Education/Training Program; Visit Provider Student in an Organized Health Care Education/Training Program | DX: E11.628 Type 2 diabetes mellitus with other skin complications (principal); L84 Corns and callosities; M77.41 Metatarsalgia, right foot; M77.42 Metatarsalgia, left foot; Z79.4 Long term (current) use of insulin | CPT/HCPCS: 11055; 99202 ==

== ENCOUNTER 2025-05-26 13:36 | Outpatient (REF) | payer MEDICARE, SELFPAY ==
--- NOTE | ~2025-05-26 | US_ITS ---
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 TECHNIQUE: Color flow triplex imaging and compression Doppler was performed to evaluate both the deep and the superficial systems bilaterally. To evaluate the superficial system, the examination was performed in the reverse Trendelenburg position. Color-flow Doppler ultrasound and compression ultrasound were utilized. In addition, maneuvers were utilized to demonstrate reflux. FINDINGS: 1. DEEP VENOUS ULTRASOUND OF THE RIGHT LOWER EXTREMITY: Common Femoral Vein: Compressible, normal respiratory variation and augmented flow. Femoral Vein: Compressible, normal color flow and augmentation. Popliteal Vein: Compressible, normal augmentation. Deep Reflux: There is no evidence of reflux in the deep system in either the common femoral vein, superficial femoral or the popliteal vein. There is no evidence of a Tomlinson's cyst. 2. SUPERFICIAL ULTRASOUND WITH DOPPLER OF RIGHT LOWER EXTREMITY: GREAT SAPHENOUS VEIN: Saphenofemoral Junction: 0.7 cm; Reflux: 0 ms Proximal Thigh: 0.7 cm; Reflux: 0 ms Mid Thigh: 0.3 cm; Reflux: 0 ms Distal Thigh: 0.3 cm; Reflux: 0 ms At Knee: 0.3 cm; Reflux: 0 ms Proximal Calf: 0.2 cm; Reflux: 0 ms Mid Calf: 0.2 cm; Reflux: 0 ms Distal Calf: 0.2 cm; Reflux: 0 ms DUPLICATED MEDIAL GREAT SAPHENOUS VEIN: Diameter: None imaged Reflux: NA DUPLICATED LATERAL GREAT SAPHENOUS VEIN: Diameter: None imaged Reflux: NA SMALL SAPHENOUS VEIN: Saphenopopliteal Junction: 0.4 cm; Reflux: 0 ms Proximal: 0.3 cm; Reflux: 0 ms Distal: 0.2 cm; Reflux: 0 ms VEIN OF GIACOMINI: Size: NA Reflux: NA PERFORATORS: Location: Mid calf Size: 0.2 cm Reflux: NA VARICOSITIES: Location: None imaged. Size: NA Reflux: NA 3. DEEP VENOUS ULTRASOUND OF THE LEFT LOWER EXTREMITY: Common Femoral Vein: Compressible, normal respiratory variation and augmented flow. Femoral Vein: Compressible, normal color flow and augmentation. Popliteal Vein: Compressible, normal augmentation. Deep Reflux: There is no evidence of reflux in the deep system in either the common femoral vein, superficial femoral or the popliteal vein. There is no evidence of a Tomlinson's cyst. 4. SUPERFICIAL ULTRASOUND WITH DOPPLER OF LEFT LOWER EXTREMITY: GREAT SAPHENOUS VEIN: Saphenofemoral Junction: 1.4 cm; Reflux: 0 ms Proximal Thigh: 0.4 cm; Reflux: 0 ms Mid Thigh: 0.4 cm; Reflux: 2288 ms Distal Thigh: 0.4 cm; Reflux: 2776 ms At Knee: 0.7 cm; Reflux: 2516 ms Proximal Calf: 0.3 cm; Reflux: 700 ms Mid Calf: 0.4 cm; Reflux: 2672 ms Distal Calf: 0.3 cm; Reflux: 2652 ms DUPLICATED MEDIAL GREAT SAPHENOUS VEIN: Diameter: None imaged Reflux: NA DUPLICATED LATERAL GREAT SAPHENOUS VEIN: Diameter: None imaged. Reflux: NA SMALL SAPHENOUS VEIN: Saphenopopliteal Junction: 0.1 cm; Reflux: 0 ms Proximal: 0.2 cm; Reflux: 1304 ms Distal: 0.2 cm; Reflux: 0 ms VEIN OF GIACOMINI: Size: NA Reflux: NA PERFORATORS: Location: 3 perforators visualized in the lower leg, 1 communicating with the lesser saphenous vein Size: 2 - 6 mm Reflux: NA VARICOSITIES: Location: Proximal calf Size: 0.5-0.3 cm Reflux: 1932 and 2076 ms US/US venous duplex LE BI IMPRESSION: Right: No evidence of DVT or deep venous reflux. Normal caliber greater and lesser saphenous veins without reflux. Left: No evidence of DVT or deep venous reflux. Dilated left greater saphenous vein measuring 0.7 cm at the knee. Left greater saphenous vein reflux from the ankle to mid thigh, maximum 2.8 seconds above the knee. Normal caliber left lesser saphenous vein with 1.3 second reflux. Perforators in the calf without reflux. Varicosities in the calf with reflux measuring 2 seconds. Electronically signed by: Smiley Panda MD 05/26/2025 02:44 PM [facility]
--- OUTSIDE RECORDS SUMMARY | 2025-05-27 01:37 | XMS_ITS | Encounter Summary ---
Author Organization [facility] Address [address] [place] [address] Care Team Providers Care Rubber Grinder Name Role Phone Aleksandra Burgess MD Primary Care Provider luz marina [facility], Pcp Primary Care Provider [facility] Encounter Details Date Type Department Care Team Description 05/04/2020 Melt Superintendant Report Medical Records [address] [place] [id number] Kervin Franco MD Social History Tobacco Use Types Packs/Day Years Used Date Smoking Tobacco: Former Cigarettes 2 18 Smokeless Tobacco: Never Comments:quit ~ 1994 Alcohol Use Standard Drinks/Week Comments No 0 (1 standard drink = 0.6 oz pur e alcohol) Sex Assigned at Date Recorded Not on file documented as of this encounter Plan of Treatment Not on file documented as of this encounter Visit Diagnoses Not on filedocumented in this encounter Care Teams Rubber Grinder Relationship Specialty Start Date End Date Aleksandra Burgess MD PCP - General Internal Medicine 08/28/17 [facility], Pcp PCP - General Internal Medicine 07/12/22 documented as of this encounter
--- OUTSIDE RECORDS SUMMARY | 2025-05-27 01:37 | XMS_ITS | Encounter Summary ---
Author Organization [facility] Address [address] [place] [address] Care Team Providers Care Music Adapter Name Role Phone Aleksandra Burgess MD Primary Care Provider Psychiatric, Pcp Primary Care Provider [facility] Reason for Visit * Reason Onset Date Comments medication problems 10/16/2017 Encounter Details Date Type Department Care Team Description 10/16/2017 Pt. Non Urgent Medical Question Adult Medicine [address] [address] Alessia Rutledge MD Social History Tobacco Use Types Packs/Day Years Used Date Smoking Tobacco: Former Cigarettes 2 18 Smokeless Tobacco: Never Comments:quit ~ 1994 Alcohol Use Standard Drinks/Week Comments No 0 (1 standard drink = 0.6 oz pur e alcohol) Sex Assigned at Date Recorded Not on file documented as of this encounter Progress Notes * Roxana Peraza L.P.N. - 10/17/2017 7:39 AM EDTFrom: Sarah Alexa Tommy To: Alessia Rutledge MD Sent: 10/16/2017 5:42 PM EDT Subject: Symbicort RX Hi Dr. Rutledge - just an FYI. I didn't fill this prescription because it was $300. I will have tocheck to see what a cheaper one is that will work for me. documented in this encounter Plan of Treatment Not on file documented as of this encounter Visit Diagnoses Not on filedocumented in this encounter Care Teams Music Adapter Relationship Specialty Start Date End Date Aleksandra Burgess MD PCP - General Internal Medicine 08/28/17 [facility], Pcp PCP - General Internal Medicine 07/12/22 documented as of this encounter
--- OUTSIDE RECORDS SUMMARY | 2025-05-27 01:37 | XMS_ITS | Encounter Summary ---
Author Organization [facility] Address [address] [place] [address] Care Team Providers Care Floral Artist Name Role Phone Aleksandra Burgess MD Primary Care Provider [facility], Pcp Primary Care Provider [facility] Reason for Visit * Reason Onset Date Comments Mychart Rx Refill 12/16/2017 Encounter Details Date Type Department Care Team Description 12/16/2017 Pt. Non Urgent Medical Question Adult Medicine [address] [address] Aleksandra Burgess MD Social History Tobacco Use Types Packs/Day Years Used Date Smoking Tobacco: Former Cigarettes 2 18 Smokeless Tobacco: Never Comments:quit ~ 1994 Alcohol Use Standard Drinks/Week Comments No 0 (1 standard drink = 0.6 oz pur e alcohol) Sex Assigned at Date Recorded Not on file documented as of this encounter Progress Notes * Roxana Peraza L.P.N. - 12/16/2017 9:48 AM EDTFrom: Sarah Sanders To: Aleksandra Sanchez MD Sent: 12/16/2017 9:46 AM EDT Subject: New prescription Hello ... please can you call in a new rx for 2.5 - 500mg tabs glyburide/metformin [facility]. Thanks documented in this encounter Plan of Treatment Not on file documented as of this encounter Visit Diagnoses Not on filedocumented in this encounter Care Teams Floral Artist Relationship Specialty Start Date End Date Aleksandra Burgess MD PCP - General Internal Medicine 08/28/17 [facility], Pcp PCP - General Internal Medicine 07/12/22 documented as of this encounter
--- OUTSIDE RECORDS SUMMARY | 2025-05-27 01:37 | XMS_ITS | Encounter Summary ---
Author Organization [facility] Address [address] [place] [address] Care Team Providers Care Mortar Carrier Name Role Phone Aleksandra Burgess MD Primary Care Provider [facility], Pcp Primary Care Provider [facility] e Reason for Visit * Reason Onset Date Comments Used Building Materials Yard Worker Feedback 04/27/2020 Neurology Encounter Details Date Type Department Care Team Description 04/27/2020 Telephone Adult Medicine B - [address] [address] Monica Brown PA-C [address] [place] [id number] Used Building Materials Yard Worker Feedback (Neurology) Social History Tobacco Use Types Packs/Day Years Used Date Smoking Tobacco: Former Cigarettes 2 18 Smokeless Tobacco: Never Comments:quit ~ 1994 Alcohol Use Standard Drinks/Week Comments No 0 (1 standard drink = 0.6 oz pur e alcohol) Sex Assigned at Date Recorded Not on file documented as of this encounter Miscellaneous Notes * Telephone Encounter - Monica Brown PA-C - 04/27/2020 2:20 PM EDT Oh great! Thank you. Can we attempt to obtain records of visit? * Telephone Encounter - Kendy Magana C.M.A. - 04/27/2020 2:18 PM EDT Spoke with pt who states she already saw [facility], FYI- pt all set for now * Telephone Encounter - Kendy Magana C.M.A. - 04/27/2020 2:07 PM EDT Left message for pt to call back, please transfer call to [facility] or if unavailable re-route to [facility] dept. * Telephone Encounter - Monica Brown PA-C - 04/27/2020 12:41 PM EDT Please inform patient that the first available appointment with Neurology in [place] (per her request) is August. If she would be willing to travel outside of [place] we may be able to get her a sooner appointment. If she would be willing to do so, I can forward message back to referrals. * Telephone Encounter - Ting De Jesus - 04/27/2020 12:21 PM EDT Monica, You referred this patient to see neurology within a 4-6 priority but the soonest I could schedule the patient for is August 17, 2019. If you feel the patient needs to be seen sooner please call [facility] at [phone] . If appointment is acceptable please document and close encounter. I have notified the patient of the appointment. If the appointment information changes please contact the patient with new appointment information. FYI- It is impossible to accommodate request. Patient wishes to be seen in [place]. Their insurance is not accepted at 2/3 neurology offices in [place]. The only office that accepts her insurance in [place] was the office mentioned above. The patient will either need to travel to other n eurology offices in other cities/towns or the patient will need to call office periodically to check for cancellations. Please advise patient Thank you Ting Referrals Drum Builder documented in this encounter Plan of Treatment Not on file documented as of this encounter Visit Diagnoses Not on filedocumented in this encounter Care Teams Mortar Carrier Relationship Specialty Start Date End Date Aleksandra Burgess MD PCP - General Internal Medicine 08/28/17 [facility], Pcp PCP - General Internal Medicine 07/12/22 documented as of this encounter
--- OUTSIDE RECORDS SUMMARY | 2025-05-27 01:37 | XMS_ITS | Encounter Summary ---
Author Organization [facility] Address [address] [place] [address] Care Team Providers Care Change Lead Name Role Phone Aleksandra Burgess MD Primary Care Provider luz marina [facility], Pcp Primary Care Provider [facility] Encounter Details Date Type Department Care Team Description 06/27/2020 Real Estate Consultant Report Medical Records [address] [place] [id number] Abdirahman Santiago MD Social History Tobacco Use Types Packs/Day [...] on filedocumented in this encounter Care Teams Change Lead Relationship Specialty Start Date End Date Aleksandra Burgess MD PCP - General Internal Medicine 08/28/17 [facility], Pcp PCP - General Internal Medicine 07/12/22 documented as of this encounter
--- OUTSIDE RECORDS SUMMARY | 2025-05-27 01:37 | XMS_ITS | Encounter Summary ---
Author Organization [facility] Address [address] [place] [address] Care Team Providers Care Sew On Operator Name Role Phone Aleksandra Burgess MD Primary Care Provider luz marina [facility], Pcp Primary Care Provider [facility] Encounter Details Date Type Department Care Team Description 04/21/2020 Quality Assurance Calibrator Report Medical Records [address] [place] [id number] Sandy Lal MD Social History Tobacco Use Types Packs/Day [...] on filedocumented in this encounter Care Teams Sew On Operator Relationship Specialty Start Date End Date Aleksandra Burgess MD PCP - General Internal Medicine 08/28/17 [facility], Pcp PCP - General Internal Medicine 07/12/22 documented as of this encounter
--- OUTSIDE RECORDS SUMMARY | 2025-05-27 01:37 | XMS_ITS | Encounter Summary ---
Author Organization [facility] Address [address] [place] [address] Care Team Providers Care Bottle Tester Name Role Phone Aleksandra Burgess MD Primary Care Provider [facility], Pcp Primary Care Provider [facility] Reason for Visit * Reason Onset Date Comments Provider Call Back 04/18/2020 Encounter Details Date Type Department Care Team Description 04/18/2020 Telephone Adult Medicine [address] [address] Aleksandra Burgess MD Provider Call Back Social History Tobacco Use Types Packs/Day Years Used Date Smoking Tobacco: Former Cigarettes 2 18 Smokeless Tobacco: Never Comments:quit ~ 1994 Alcohol Use Standard Drinks/Week Comments No 0 (1 standard drink = 0.6 oz pur e alcohol) Sex Assigned at Date Recorded Not on file documented as of this encounter Miscellaneous Notes * Telephone Encounter - Kaitlin Gtz M.A. - 04/18/2020 9:20 AM EDT Returning call from 04/15/20 [employer] message. * Telephone Encounter - Quin Dunlap - 04/18/2020 9:05 AM EDT Caller requesting call back from provider: Is the caller the patient? YES If caller is not the patient, what is the callers name? N/A Callers relationship to patient? N/A If person calling is not the patient themselves, is there a verbal release in FYI or permanent comments for this person: NO Reason for call back: Pt states she got a call this morning reguarding call from least week head tremmers ? Pls advise and return call. Caller offered to speak with the nurse for assistance: YES Response: Patient offered to speak with nurse for assistance and patient agreed. Message forwardedto nurse. documented in this encounter Plan of Treatment Not on file documented as of this encounter Visit Diagnoses Not on filedocumented in this encounter Care Teams Bottle Tester Relationship Specialty Start Date End Date Aleksandra Burgess MD PCP - General Internal Medicine 08/28/17 [facility], Pcp PCP - General Internal Medicine 07/12/22 documented as of this encounter
--- OUTSIDE RECORDS SUMMARY | 2025-05-27 01:37 | XMS_ITS | Encounter Summary ---
Author Organization [facility] [facility] Address [address] [place] [address] Care Team Providers Care Behavioral Pediatrician Name Role Phone Aleksandra Burgess MD Primary Care Provider [facility], Pcp Primary Care Provider [facility] e Reason for Visit * Reason Onset Date Comments Mychart Rx Refill 05/18/2018 Encounter Details Date Type Department Care Team Description 05/18/2018 Refill Adult Medicine - [place] [address] [place] [address] Aleksandra Burgess MD Mychart Rx Refill Social History Tobacco Use Types Packs/Day Years Used Date Smoking Tobacco: Former Cigarettes 2 18 Smokeless Tobacco: Never Comments:quit ~ 1994 Alcohol Use Standard Drinks/Week Comments No 0 (1 standard drink = 0.6 oz pur e alcohol) Sex Assigned at Date Recorded Not on file documented as of this encounter Miscellaneous Notes * Telephone Encounter - Aleksandra Sanchez MD - 05/19/2018 9:44 AM EST Signed, thank you * Telephone Encounter - Vaughn Harper M.A. - 05/19/2018 8:57 AM EST Last office visit 05.05.18 Lab Results Component Value Date NA 137 04/16/2018 K 4.5 04/16/2018 CO2 28.0 04/16/2018 CL 95 04/16/2018 BUN 12 04/16/2018 CREAT 0.8 04/16/2018 GLU 262 04/16/2018 CA 9.1 04/16/2018 GFR > 60 04/16/2018 * Telephone Encounter - Vaughn Harper M.A. - 05/19/2018 8:57 AM ESTFrom: Sarah Sanders To: Aleksandra Sanchez MD Sent: 05/18/2018 10:14 PM EST Subject: Medication Renewal Request Original authorizing provider: MD Sarah Torres would like a refill of the following medications: valsartan-hydrochlorothiazide (DIOVAN-HCT) 80-12.5 MG per tablet [Aleksandra Sanchez MD] Preferred pharmacy: [email or web address] [place], [place] - [address] [facility] AT Comment: documented in this encounter Plan of Treatment Not on file documented as of this encounter Visit Diagnoses Not on filedocumented in this encounter Care Teams Behavioral Pediatrician Relationship Specialty Start Date End Date Aleksandra Burgess MD PCP - General Internal Medicine 08/28/17 [facility], Pcp PCP - General Internal Medicine 07/12/22 documented as of this encounter
--- OUTSIDE RECORDS SUMMARY | 2025-05-27 01:37 | XMS_ITS | Encounter Summary ---
Author Organization [facility] [employer] [facility] Address [address] [place] [address] Care Team Providers Care Sales Demonstrator Name Role Phone Aleksandra Burgess MD Primary Care Provider [facility], Pcp Primary Care Provider [facility] Reason for Visit * Reason Onset Date Comments refill request 05/16/2020 Encounter Details Date Type Department Care Team Description 05/16/2020 Refill Adult Medicine - [place] [address] [place] [address] Aleksandra Burgess MD refill request Social History Tobacco Use Types Packs/Day Years Used Date Smoking Tobacco: Former Cigarettes 2 18 Smokeless Tobacco: Never Comments:quit ~ 1994 Alcohol Use Standard Drinks/Week Comments No 0 (1 standard drink = 0.6 oz pur e alcohol) Sex Assigned at Date Recorded Not on file documented as of this encounter Miscellaneous Notes * Telephone Encounter - Sara Hernandez M.A. - 05/16/2020 11:53 AM ESTFrom: Sarah Sanders Sent: 05/16/2020 11:23 AM EST Subject: Medication Renewal Request Sarah Sanders would like a refill of the following medications: Other - Melatonin 5mg 90 day refill Preferred pharmacy: [id number] - [place], [place] - [address] [facility] Medication renewals requested in this message routed separately: Liraglutide (VICTOZA) 18 MG/3ML Solution Pen-injector [Aleksandra Sanchez MD] Patient Comment: 90 day refill/supply losartan (COZAAR) 50 MG tablet [Aleksandra Sanchez MD] Patient Comment: 90 day refill atorvastatin (LIPITOR) 80 MG tablet [Aleksandra Sanchez MD] Patient Comment: 90 day refill metoprolol (TOPROL-XL) 25 MG 24 hr tablet [ISABEL PEREZ PA-C] Patient Comment: 90 day refill < BR /> documented in this encounter Plan of Treatment Not on file documented as of this encounter Visit Diagnoses Not on filedocumented in this encounter Care Teams Sales Demonstrator Relationship Specialty Start Date End Date Aleksandra Burgess MD PCP - General Internal Medicine 08/28/17 [facility], Pcp PCP - General Internal Medicine 07/12/22 documented as of this encounter
--- OUTSIDE RECORDS SUMMARY | 2025-05-27 01:37 | XMS_ITS | Encounter Summary ---
Author Organization [facility] Address [address] [place] [address] Care Team Providers Care Corrections Sergeant Name Role Phone Aleksandra Burgess MD Primary Care Provider [facility], Pcp Primary Care Provider [facility] Encounter Details Date Type Department Care Team Description 02/24/2018 Refill [facility] MyChart [address] [place] [address] Md Chris Social History Tobacco Use Types Packs/Day Years Used Date Smoking Tobacco: Former Cigarettes 2 18 Smokeless Tobacco: Never Comments:quit ~ 1994 Alcohol Use Standard Drinks/Week Comments No 0 (1 standard drink = 0.6 oz pur e alcohol) Sex Assigned at Date Recorded Not on file documented as of this encounter Miscellaneous Notes * Telephone Encounter - Wild Bates - 02/25/2018 1:30 PM EDTFrom: Sarah Sanders Sent: 02/24/2018 11:25 AM EDT Subject: Medication Renewal Request Sarah Sanders would like a refill of the following medications: Other - see comments for explanation Preferred pharmacy: [id number] - [place], [place] - [address] [facility] AT Comment: I am taking qvar since my prior insurance no longer covered advair discus which worked great for me. Qvar is not helping me at all. I was taking 250/50 2x and I never had any problems with the advair. Can a prescription for it be called in christel. I am going out of town on Saturday so if this can bedone chritsel that would be great. I will make a f/u after I get back. documented in this encounter Plan of Treatment Not on file documented as of this encounter Visit Diagnoses Not on filedocumented in this encounter Care Teams Corrections Sergeant Relationship Specialty Start Date End Date Aleksandra Burgess MD PCP - General Internal Medicine 08/28/17 [facility], Pcp PCP - General Internal Medicine 07/12/22 documented as of this encounter
--- OUTSIDE RECORDS SUMMARY | 2025-05-27 01:37 | XMS_ITS | Encounter Summary ---
Author Organization [facility] Address [address] [place] [address] Care Team Providers Care Forepart Rasper Name Role Phone Aleksandra Burgess MD Primary Care Provider [facility], Pcp [facility] Reason for Visit * Reason Onset Date Comments Mychart Rx Refill 04/28/2018 Encounter Details Date Type Department Care Team Description 04/28/2018 Pt. Non Urgent Medical Question Adult Medicine - [address] [address] Imani Louis PA-C [address] [place] [id number] Social History Tobacco Use Types Packs/Day Years Used Date Smoking Tobacco: Former Cigarettes 2 18 Smokeless Tobacco: Never Comments:quit ~ 1994 Alcohol Use Standard Drinks/Week Comments No 0 (1 standard drink = 0.6 oz pur e alcohol) Sex Assigned at Date Recorded Not on file documented as of this encounter Progress Notes * Roxana Peraza L.P.N. - 04/28/2018 10:43 AM EDTFrom: Sarah Sanders To: Imani Louis PA-C Sent: 04/28/2018 10:41 AM EDT Subject: Victoza I need a new prescription called in for a Victoza because I was using a smaller amount dosage and now I'm on the highest which is 1.8 and I am out of it and the pharmacy will not fill because it is too soon so I need a new prescription with 1.8 being the prescribed amount thank you my pharmacy is [facility] [address] documented in this encounter Plan of Treatment Not on file documented as of this encounter Visit Diagnoses Not on filedocumented in this encounter Care Teams Forepart Rasper Relationship Specialty Start Date End Date Aleksandra Burgess MD PCP - General Internal Medicine 08/28/17 [facility], Pcp PCP - General Internal Medicine 07/12/22 documented as of this encounter
--- OUTSIDE RECORDS SUMMARY | 2025-05-27 01:37 | XMS_ITS | Encounter Summary ---
Author Organization [facility] [employer] [facility] Address [address] [place] [address] Care Team Providers Care Hobbing Machine Operator Name Role Phone Aleksandra Burgess MD Primary Care Provider [facility], Pcp Primary Care Provider [facility] Reason for Referral * EXTERNAL (Priority) - Authorized/Booked Specialty Diagnoses / Procedures Referred By Contac t Referred To Contact Neurology Procedures REFERRAL TO NEUROLOGY Aleksandra Burgess MD [address] [place] [address] Pito Stacy MD Referral ID Status Reason Start Date Expiration Date V isits Requested Visits Authorized SEE NOTE Authorized/B ooked 04/18/2020 07/27/2020 1 1 Encounter Details Date Type Department Care Team Description 04/15/2020 Pt. Non Urgent Medical Question Adult Medicine B - [address] [address] Aleksandra Burgess MD Social History Tobacco Use Types Packs/Day Years Used Date Smoking Tobacco: Former Cigarettes 2 18 Smokeless Tobacco: Never Comments:quit ~ 1994 Alcohol Use Standard Drinks/Week Comments No 0 (1 standard drink = 0.6 oz pur e alcohol) Sex Assigned at Date Recorded Not on file documented as of this encounter Progress Notes * Diana Eduardo L.P.N. - 04/15/2020 3:17 PM EDTFrom: Sarah Sanders To: Aleksandra Sanchez MD Sent: 04/15/2020 3:13 PM EDT Subject: [facility] I just phoned them re: scheduling an appointment They stated they never received anything from you.Can you find one closer and send a referral to them. Thanks documented in this encounter Plan of Treatment Not on file documented as of this encounter Visit Diagnoses Not on filedocumented in this encounter Care Teams Hobbing Machine Operator Relationship Specialty Start Date End Date Aleksandra Burgess MD PCP - General Internal Medicine 08/28/17 [facility], Pcp PCP - General Internal Medicine 07/12/22 documented as of this encounter
--- OUTSIDE RECORDS SUMMARY | 2025-05-27 01:37 | XMS_ITS | Encounter Summary ---
Author [facility] Address [address] [place] [address] Care Team Providers Care Doctor Of Dental Surgery Name Role Phone Aleksandra Burgess MD [facility] Primary Care Provider [facility] Encounter Details Date Type Department Care Team Description 11/16/2019 Bus Greaser Report Medical Records [address] [place] [id number] Kervin Franco MD Social History Tobacco Use [...] on filedocumented in this encounter Care Teams Doctor Of Dental Surgery Relationship Specialty Start Date End Date Aleksandra Burgess MD PCP - General Internal Medicine 08/28/17 [facility], Pcp PCP - General Internal Medicine 07/12/22 documented as of this encounter
--- OUTSIDE RECORDS SUMMARY | 2025-05-27 01:37 | XMS_ITS | Encounter Summary ---
Author Organization [facility] Address [address] [place] [address] Care Team Providers Care Psychological Operations Specialist Name Role Phone Aleksandra Burgess MD Primary Care Provider [facility], Pcp Primary Care Provider [facility] e Reason for Visit * Reason Onset Date Comments Prior Authorization 01/24/2018 Encounter Details Date Type Department Care Team Description 01/24/2018 Telephone Adult Medicine - [address] [address] Imani Louis PA-C [address] [place] [id number] Prior Authorization Social History Tobacco Use Types Packs/Day Years Used Date Smoking Tobacco: Former Cigarettes 2 18 Smokeless Tobacco: Never Comments:quit ~ 1994 Alcohol Use Standard Drinks/Week Comments No 0 (1 standard drink = 0.6 oz pur e alcohol) Sex Assigned at Date Recorded Not on file documented as of this encounter Miscellaneous Notes * Telephone Encounter - Margarita Renteria M.A. - 01/27/2018 3:20 PM EDT Spoke with Pito from [facility] who stated that this was approved. They ran a test claim and itpays out for 3.55 Approved from 01/23/18 until 01/23/2020 * Telephone Encounter - Jana Weldon M.A. - 01/24/2018 12:56 PM EDT This was done 01/23/18 and refaxed 01/24/18 with 8 pages-2 pages were not copied on backside. * Telephone Encounter - Kelly Graves - 01/24/2018 10:43 AM EDT Pre Authorization for Medication-do not complete and send this encounter unless you have the fax from the pharmacy. Is this a Cover My Meds request: [place] of Medication victoza 3-hayes pen Dose of Medication 18 mg/3ml What is the RX # from the faxed refill? *n/a How does patient take this med? Inject 0.6 mg into the skin daily. Inject 0.6 mg subcutenous daily for the only for the first week of starting medication. Increase to 1.2 mg subcutenous daily after the first week What Pharmacy did the fax come from: [facility] fax #: [phone] [employer] Information from fax: What Prescription Plan does the patient have? [facility] BIN/PCN if applicable: N/A Cardholder ID:[id number] Person Code: N/A Relationship Code: N/A Help desk phone: [phone] documented in this encounter Plan of Treatment Not on file documented as of this encounter Visit Diagnoses Not on filedocumented in this encounter Care Teams Psychological Operations Specialist Relationship Specialty Start Date End Date Aleksandra Burgess MD PCP - General Internal Medicine 08/28/17 [facility], Pcp PCP - General Internal Medicine 07/12/22 documented as of this encounter
--- OUTSIDE RECORDS SUMMARY | 2025-05-27 01:37 | XMS_ITS | Encounter Summary ---
Author Organization [facility] Address [address] [place] [address] Care Team Providers Care Jet Handler Name Role Phone Aleksandra Burgess MD Primary Care Provider [facility], Pcp Primary Care Provider [facility] Encounter Details Date Type Department Care Team Description 12/05/2019 Pt. Non Urgent Medic al Question Adult Medicine [address] [address] Aleksandra Burgess MD Social History Tobacco Use Types Packs/Day Years Used Date Smoking Tobacco: Former Cigarettes 2 18 Smokeless Tobacco: Never Comments:quit ~ 1994 Alcohol Use Standard Drinks/Week Comments No 0 (1 standard drink = 0.6 oz pur e alcohol) Sex Assigned at Date Recorded Not on file documented as of this encounter Progress Notes * Sara Hernandez M.A. - 12/07/2019 9:46 AM EDTFrom: Sarah Sanders To: Aleksandra Sanchez MD Sent: 12/05/2019 10:55 AM EDT Subject: Metformin recall I got a message that the fda is recalling metformin do to carcinogen content and to inform you. Have you heard of this? documented in this encounter Plan of Treatment Not on file documented as of this encounter Visit Diagnoses Not on filedocumented in this encounter Care Teams Jet Handler Relationship Specialty Start Date End Date Aleksandra Burgess MD PCP - General Internal Medicine 08/28/17 [facility], Pcp PCP - General Internal Medicine 07/12/22 documented as of this encounter
--- OUTSIDE RECORDS SUMMARY | 2025-05-27 01:37 | XMS_ITS | Encounter Summary ---
Author Organization [facility] [employer] [facility] Address [address] [place] [address] Care Team Providers Care Supervisor Grain And Yeast Plants Name Role Phone Aleksandra Burgess MD Primary Care Provider [facility], Pcp Primary Care Provider [facility] e Reason for Visit * Reason Onset Date Comments refill request 04/03/2018 Encounter Details Date Type Department Care Team Description 04/03/2018 Refill Adult Medicine B - [place] [address] [place] [address] Aleksandra Burgess MD refill request Social History Tobacco Use Types Packs/Day Years Used Date Smoking Tobacco: Former Cigarettes 2 18 Smokeless Tobacco: Never Comments:quit ~ 1994 Alcohol Use Standard Drinks/Week Comments No 0 (1 standard drink = 0.6 oz pur e alcohol) Sex Assigned at Date Recorded Not on file documented as of this encounter Miscellaneous Notes * Telephone Encounter - Miya Galvan NP - 04/03/2018 4:46 PM EDT duplicate * Telephone Encounter - Sara Hernandez M.A. - 04/03/2018 3:45 PM EDT Date of last office visit was 01/03/18. Pended appt for 05/05/18 Lab Results Component Value Date HGBA1C 11.3 10/14/2017 MALBUR 348.0 10/14/2017 MALBCR 138.6 10/14/2017 GLU 340 01/03/2018 CREAT 0.8 10/14/2017 * Telephone Encounter - Kaylin Ulisesnathaniel - 04/03/2018 3:43 PM EDT Patient would like script to be: E-PRESCRIBED/FAXED TO PHARMACY WHEN WAS THE PATIENT'S LAST APPOINTMENT IN ADULT MEDICINE? 01/03/18 WHEN WAS THE LAST TIME THE PATIENT SAW THEIR PCP? 11/27/17 Does patient have an upcoming appointment? Yes 05/05/18 (THE MEDICATION REQUESTED IS ON THE MED LIST ABOVE) All of the medications requested were on the CURRENT MEDS list Did you check the Pharmacy information above?: YES Patient wants: 30 -day supply Is this a mail order prescription request ? NO If the refill is from a FAXED refill request what is the RX # listed on the fax? N/A Patients current insurance carrier is: Payor: [employer] F[employer] / Plan: [employer] / Product Type: MEDICAID RISK documented in this encounter Plan of Treatment Not on file documented as of this encounter Visit Diagnoses Not on filedocumented in this encounter Care Teams Supervisor Grain And Yeast Plants Relationship Specialty Start Date End Date Aleksandra Burgess MD PCP - General Internal Medicine 08/28/17 [facility], Pcp PCP - General Internal Medicine 07/12/22 documented as of this encounter
--- OUTSIDE RECORDS SUMMARY | 2025-05-27 01:37 | XMS_ITS | Clinical Summary ---
Author Organization [facility] Address [address] [place] [address] Care Team Providers Care County Agent Name Role Phone Community, Pcp Primary Care Provider Unavailabl e Allergies Active Allergy Reactions Severity Noted Date Comments Atorvastatin 01/27/2019 myalgia Seasonal Allergies 09/01/2018 Runny nose , watery eyes and sneezing Medications Medication Sig Dispensed Refills Start Date End Date Status aspirin 81 MG tablet Take 81 mg by mouth daily. 1 tablet every day 0 Active Insulin Pen Needle (BD PEN NEEDLE KYLIE U/F) 32G X 4 MM Misc Use one daily with victoza. 100 Each 1 01/12/2018 Active glucose blood test strips (FREESTYLE PRECISION FARRAH TEST) strip Use as needed to check blood glucose if [place] sensor reading for blood sugar is below 65 or if there is question of [place] CGM accurancy. 100 Each 0 07/22/2018 Active cetirizine (ZYRTEC) 10 MG tablet Take 10 mg by mouth daily. 0 Active fluticasone 50 MCG/ACT nasal spray 2 Sprays by Each Nare route daily. 1 Bottle 5 07/13/2019 Active ketotifen 0.025 % ophthalmic solution Place 1 Drop into both eyes 2 times daily as needed (itch or tear). 1 Bottle 5 07/13/2019 Active Insulin Pen Needle (BD PEN NEEDLE KYLIE U/F) 32G X 4 MM Misc Use with insulin pen 5 times a day 100 Each 5 08/17/2019 Active Fluticasone-Salmeter ol (AIRDUO RESPICLICK 113/14) 113-14 MCG/ACT AEROSOL POWDER,BREATH ACTIVATED Inhale 1 Puff into the lungs 2 times daily. 60 Each 3 08/25/2019 Active Insulin Syringe-Needle U-100 (INSULIN SYRINGE .5CC/28G) 28G X 1/2 0.5 ML Misc To inject insulin once daily 90 Each 1 11/10/2019 Active insulin glargine (LANTUS) 100 UNIT/ML injection Inject 28 Units into the skin at bedtime. 15 mL 3 11/10/2019 Active Insulin Glargine (LANTUS SOLOSTAR) 100 UNIT/ML Solution Pen-injector Inject 28 Units into the skin daily. 15 mL 3 11/10/2019 Active ALBUTEROL SULFATE (PROAIR HFA) 108 (90 Base) MCG/ACT Aero Soln Inhale 2 Puffs into the lungs every 4 hours as needed for Cough or Wheezing. 1 Inhaler 0 12/08/2019 Active metformin (GLUCOPHAGE-XR) 500 MG 24 hr tablet TAKE 1 TABLET 2 TIMES A DAY (WITH MEALS) 60 Tab 5 12/24/2019 Active fluoxetine (PROZAC) 20 MG capsule Take 20 mg by mouth daily. 90 Cap 1 02/10/2020 Active Glucose Blood (FREESTYLE LITE) Strip Test blood sugars three times a day 100 Strip 5 02/22/2020 Active alprazolam (XANAX) 0.5 MG tablet Take 1 Tab by mouth 3 times daily as needed for Anxiety for up to 7 days. 21 Tab 0 03/09/2020 Active clopidogrel (PLAVIX) 75 MG tablet Take 1 Tab by mouth daily. 90 Tab 1 04/14/2020 Active Liraglutide (VICTOZA) 18 MG/3ML Solution Pen-injector Inject 1.2 mg into the skin daily. 150 mg 1 05/16/2020 Active losartan (COZAAR) 50 MG tablet Take 1 Tab by mouth daily. 90 Tab 1 05/16/2020 Active atorvastatin (LIPITOR) 80 MG tablet Take 1 Tab by mouth daily. 90 Tab 1 05/16/2020 Active metoprolol (TOPROL-XL) 25 MG 24 hr tablet Take 1 Tab by mouth daily. 90 Tab 1 05/16/2020 Active omeprazole (PRILOSEC) 20 MG capsule Take 1 Cap by mouth daily. 90 Cap 1 05/18/2020 Active Active Problems Problem Noted Date Perennial allergic rhinitis 07/13/2019 Allergic conjunctivitis of both eyes 12/2019 STEMI (ST elevation myocardial infarctio n) 06/10/2019 Overview: [place] PCI. 99% mid RCA occlusion and 80% distal RCA occulsion and underwent PCI with ROSELINE x2. Oumou was also found to have additional 70% occlusion to the LAD which will be treated with staged PCI. Hyperlipidemia 04/21/2018 Morbid obesity 01/04/2018 Microalbuminuria 01/03/2018 DM (diabetes mellitus), type 2 with inez l complications 10/02/2017 Overview: V-go Iron deficiency anemia due to chronic bl ood loss 10/02/2017 Depression 10/02/2017 Asthma 10/02/2017 GERD with esophagitis 10/02/2017 Hypertension 10/02/2017 Adrenal nodule 10/02/2017 Overview: 07/2016 CT, rec f/u 6-12 mo's Diverticulosis 10/02/2017 Fatty liver 10/02/2017 Colon polyp 10/02/2017 Resolved Problems Problem Noted Date Resolved Date Proteinuria 10/02/2017 10/14/2017 Immunizations Name Administration Dates Next Due Pneumoccoccal(Adult) Polysaccharide PPSV23 09/01 TD (STATE SUPPLIED FOR ADULTS AND CHILDREN) 08/09 Family History Medical History Relation Name Comments No Known Problems Aunt Hypertension Brother Other Brother detached retina Brain Aneurysm Father of aorti c aneurysm, Hyperlipidemia,Hypertension Cancer of the Colon Mother Diabetes , Hypertension, Hypothyroidism, CVA Glaucoma Mother No Known Problems Other Asthma Sister Hypertension Sister Macular Degeneration Sister No Known Problems Uncle Blindness Negative Hx CA Breast Negative Hx Cataract Negative Hx Strabismus Negative Hx Relation Name Status Comments Aunt Brother Father Mother Other Sister Uncle Social History Tobacco Use Types Packs/Day Years Used Date Smoking Tobacco: Former Cigarettes 2 18 Smokeless Tobacco: Never Comments:quit ~ 1994 Alcohol Use Standard Drinks/Week Comments No 0 (1 standard drink = 0.6 oz pur e alcohol) Sex Assigned at Date Recorded Not on file Last Filed Vital Signs Vital Sign Reading Time Taken Comments Blood Pressure 114/82 10/26/2019 3:49 PM EDT Pulse 68 10/26/2019 3:49 PM EDT Temperature 36.9 C (98.5 F) 03/03/2019 9:15 AM EDT Respiratory Rate 14 10/26/2019 3:49 PM EDT Oxygen Saturation 97% 07/13/2019 9:04 AM EST Inhaled Oxygen Concentration - - Weight 91.4 kg (201 lb 6.4 oz) 10/26/2019 3:49 P M EDT Height 160 cm (5' 3 ) 10/26/2019 3:49 PM EDT Body Mass Index 35.68 10/26/2019 3:49 PM EDT Plan of Treatment Health Maintenance Due Date Last Done Comments Covid-19 Vaccine (#1) 1960 SHINGLES VACCINE (1 of 2) 2010 DTAP/TDAP/TD (1 - Tdap) 09/02/2018 09/01/2018 DIABETES: ANNUAL EYE EXAM 01/20/2019 01/20/2018 CERVICAL CANCER SCREENING 02/20/20192015 (External Completion), 02/21/2016 MAMMOGRAM 03/24/2019 03/24/2018, 02/05, 02/15/2016, Additional history exists DIABETES: ANNUAL FOOT EXAM 04/21/2019 04/21/2018 COLON CANCER SCREENING 09/22/2019 7 (External Completion), 09/21/2016 DIABETES: BLOOD SUGAR CONTRO L TEST (HGBA1C) 06/08/2020 03/09/2020, 10/26/2019, 06/02/2019, Additional history exists DIABETES/HEART DISEASE: BHAVIK AL CHOLESTEROL (LDL) 10/25/2020 10/26/2019, 06/02/2019, 08/30/2018, Additional history exists DIABETES: ANNUAL URINE PROTE IN TEST (MICROALBUMIN) 10/25/2020 10/26/2019, 06/02/2019, 08/30/2018, Additional history exists BMI CHECK/ADVISE 07/08/2024 10/26/2019, 05/2019, 06/02/2019, Additional history exists DEPRESSION SCREENING/FOLLOWUP 07/08/2024, 07/29/2019, 01/18/2019, Additional history exists INFLUENZA (#1) 2025 04/21/2018 (Refused) BONE DENSITY SCREENING 2025 PNEUMOCOCCAL VACCINE (2 - PCV) 2025 09/01/2018 HEPATITIS C SCREENING Completed 10/14/2017 Care Teams County Agent Relationship Specialty Start Date End Date Community, Pcp PCP - General Internal Medicine 07/12/22
--- OUTSIDE RECORDS SUMMARY | 2025-05-27 01:38 | XMS_ITS | Encounter Summary ---
Author Organization [facility] Address [address] [place] [address] Care Team Providers Care Consignee Name Role Phone Aleksandra Burgess MD Primary Care Provider [facility], Pcp Primary Care Provider [facility] Encounter Details Date Type Department Care Team Description 03/05/2019 Pt. Non Urgent Medical Question Adult Urgent Care - [address] [address] Aydin Rendon MD Social History Tobacco Use Types Packs/Day Years Used Date Smoking Tobacco: Former Cigarettes 2 18 Smokeless Tobacco: Never Comments:quit ~ 1994 Alcohol Use Standard Drinks/Week Comments No 0 (1 standard drink = 0.6 oz pur e alcohol) Sex Assigned at Date Recorded Not on file documented as of this encounter Progress Notes * Sara Hernandez M.A. - 03/06/2019 8:21 AM EDTFrom: Sarah Sanders To: Aydin Rendon MD Sent: 03/05/2019 5:42 PM EDT Subject: Humalog My insurance company needs prior authorization in order to cover this drug. Any questions let me know. Thanks documented in this encounter Plan of Treatment Not on file documented as of this encounter Visit Diagnoses Not on filedocumented in this encounter Care Teams Consignee Relationship Specialty Start Date End Date Aleksandra Burgess MD PCP - General Internal Medicine 08/28/17 [facility], Pcp PCP - General Internal Medicine 07/12/22 documented as of this encounter
--- OUTSIDE RECORDS SUMMARY | 2025-05-27 01:38 | XMS_ITS | Encounter Summary ---
Author Organization [facility] Address [address] [place] [address] Care Team Providers Care Md Psychiatry Name Role Phone Aleksandra Burgess MD Primary Care Provider [facility], Pcp Primary Care Provider [facility] e Reason for Visit * Reason Onset Date Comments refill request 02/04/2019 Encounter Details Date Type Department Care Team Description 02/04/2019 Refill Adult Medicine B - [place] [address] [place] [address] Aleksandra Burgess MD refill request Social History [...] Telephone Encounter - Aleksandra Sanchez MD - 02/05/2019 11:17 AM EDT Signed, thank you * Telephone Encounter - Sara Hernandez M.A. - 02/05/2019 8:30 AM EDT Date of last office visit was 01/27/19. Pended appt for 06/02/19 Lab Results Component Value Date HGBA1C 10.0 01/23/2019 MALBUR 78.3 08/30/2018 MALBCR 38.0 08/30/2018 CHOL 133 08/30/2018 LDL 69 08/30/2018 HDL 31 08/30/2018 TRIG 168 08/30/2018 GLU 175 08/30/2018 CREAT 0.78 08/30/2018 * Telephone Encounter - Sara Hernandez M.A. - 02/05/2019 8:30 AM EDTFrom: Sarah Sanders To: Aleksandra Sanchez MD Sent: 02/04/2019 10:03 PM EDT Subject: Medication Renewal Request Original authorizing provider: MD Sarah Torres would like a refill of the following medications: Glucose Blood (FREESTYLE LITE) Strip [Aleksandra Sanchez MD] Insulin Glargine (LANTUS SOLOSTAR) 100 UNIT/ML Solution Pen-injector [Aleksandra Sanchez MD] Preferred pharmacy: [id number] [place], [place] - [address] [facility] AT Comment: documented in this encounter Plan of Treatment Not on file documented as of this encounter Visit Diagnoses Not on filedocumented in this encounter Care Teams Md Psychiatry Relationship Specialty Start Date End Date Aleksandra Burgess MD PCP - General Internal Medicine 08/28/17 [facility], Pcp PCP - General Internal Medicine 07/12/22 documented as of this encounter
--- OUTSIDE RECORDS SUMMARY | 2025-05-27 01:38 | XMS_ITS | Encounter Summary ---
Author Organization [facility] Address [address] [place] [address] Care Team Providers Care Baseball Hand Sewer Name Role Phone Aleksandra Burgess MD Primary Care Provider luz marina [facility], Pcp Primary Care Provider [facility] Encounter Details Date Type Department Care Team Description 10/03/2017 Hospital Medical Records [address] [place] [address] Ollie Suarez MD [address] [place] [id number] Social History Tobacco Use Types Packs/Day Years [...] on filedocumented in this encounter Care Teams Baseball Hand Sewer Relationship Specialty Start Date End Date Aleksandra Burgess MD PCP - General Internal Medicine 08/28/17 [facility], Pcp PCP - General Internal Medicine 07/12/22 documented as of this encounter
--- OUTSIDE RECORDS SUMMARY | 2025-05-27 01:38 | XMS_ITS | Encounter Summary ---
Author Organization [facility] Address [address] [place] [address] Care Team Providers Care Senior Technical Project Manager Name Role Phone Aleksandra Burgess MD Primary Care Provider [facility], Pcp Primary Care Provider [facility] Reason for Visit * Reason Onset Date Comments Provider Call Back 08/05/2018 Encounter Details Date Type Department Care Team Description 08/05/2018 Telephone Adult Medicine [facility] [address] [place] [address] Aleksandra Burgess MD Provider Call Back Social History Tobacco Use Types Packs/Day Years Used Date Smoking Tobacco: Former Cigarettes 2 18 Smokeless Tobacco: Never Comments:quit ~ 1994 Alcohol Use Standard Drinks/Week Comments No 0 (1 standard drink = 0.6 oz pur e alcohol) Sex Assigned at Date Recorded Not on file documented as of this encounter Miscellaneous Notes * Telephone Encounter - Imani Louis PA-C - 08/05/2018 4:58 PM EST Needs to test 4 times daily in order to use sliding scale appropriatly. For better DM control. * Telephone Encounter - Star Martinez - 08/05/2018 2:19 PM EST Need documentation as to why patient needs to test 4 times a day documented in this encounter Plan of Treatment Not on file documented as of this encounter Visit Diagnoses Not on filedocumented in this encounter Care Teams Senior Technical Project Manager Relationship Specialty Start Date End Date Aleksandra Burgess MD PCP - General Internal Medicine 08/28/17 [facility], Pcp PCP - General Internal Medicine 07/12/22 documented as of this encounter
--- OUTSIDE RECORDS SUMMARY | 2025-05-27 01:38 | XMS_ITS | Encounter Summary ---
Author Organization [facility] Address [address] [place] [address] Care Team Providers Care Ediphone Operator Name Role Phone [facility], Pcp Primary Care Provider Unavailtiffanie e Byron Johnson MD Primary Care Provider Unavailable Aleksandra Burgess MD Primary Care Provider [facility], Pcp Primary Care Provider Unavailabl e Reason for Visit * Reason Onset Date Comments Gynecological Problem 12/19/2010 Encounter Details Date Type Department Care Team Description 12/19/2010 Telephone OBGYN - [address] [address] Mahin Don MD Gynecological Problem Social History Tobacco Use Types Packs/Day Years Used Date Smoking Tobacco: Never Alcohol Use Standard Drinks/Week Comments No 0 (1 standard drink = 0.6 oz pur e alcohol) Sex Assigned at Date Recorded Not on file documented as of this encounter Miscellaneous Notes * Telephone Encounter - Briseyda Oseguera R.N. - 12/20/2010 2:42 PM EDT In providers box, provider still seeing pt's at this time. * Telephone Encounter - Kaitlin Ramirez - 12/20/2010 2:31 PM EDT Still waiting for call back from dr. don * Telephone Encounter - Briseyda Oseguera R.N. - 12/19/2010 3:59 PM EDT Message forwarded to provider. (Likely in regards to her daughter, , who was looking for an appointment with you for ?vi. Has not seen you since Mar 2005 (several cancels since then) Had advised daughter that she is essentially new pt again to all of [place] as she has not seen [facility] PCP since 10/2006 (and prior to that last seen 1999) and by publication director since 2004. Had also advised that you weren't accepting new pts plus no openings in near future with you or CNMs - currently booking mid January. Offered appts with and declined.) * Telephone Encounter - Johanny Saldaña - 12/19/2010 3:37 PM EDT Chief Complaint/problem: Ok for tomorrow - pt would like to speak to dr don - personal How long has the patient had this problem? - Pt???s GREENHOUSE ASSISTANT provider: Mahin Don MD Last menstrual period (LMP) or EDC (due date): N/A documented in this encounter Plan of Treatment Not on file documented as of this encounter Visit Diagnoses Not on filedocumented in this encounter Care Teams Ediphone Operator Relationship Specialty Start Date End Date Community, Pcp PCP - General 03/11/1998 02/10/13 Byron Johnson MD PCP - General Internal Medicine 02/11/1308/09 Aleksandra Burgess MD PCP - General Internal Medicine 08/28/17 Community, Pcp PCP - General Internal Medicine 07/12/22 documented as of this encounter
--- OUTSIDE RECORDS SUMMARY | 2025-05-27 01:38 | XMS_ITS | Encounter Summary ---
Author Organization [facility] Address [address] [place] [address] Care Team Providers Care Drafter Cartographic Name Role Phone Aleksandra Burgess MD Primary Care Provider [facility], Pcp Primary Care Provider [facility] Encounter Details Date Type Department Care Team Description 08/05/2018 Telephone Adult Medicine B - [address] [address] Imani Louis PA-C [address] [place] [address] Social History Tobacco Use Types Packs/Day Years Used Date Smoking Tobacco: Former Cigarettes 2 18 Smokeless Tobacco: Never Comments:quit ~ 1994 Alcohol Use Standard Drinks/Week Comments No 0 (1 standard drink = 0.6 oz pur e alcohol) Sex Assigned at Date Recorded Not on file documented as of this encounter Miscellaneous Notes * Telephone Encounter - Sofie Kiran MA. - 08/06/2018 11:08 AM EST Pt informed * Telephone Encounter - Imani Louis PA-C - 08/05/2018 10:26 AM EST Please call patient and inform her that I spoke to [place]. It takes a month to process orders. [employer] orders are being process and someone will call her in 2 weeks about the device. documented in this encounter Plan of Treatment Not on file documented as of this encounter Visit Diagnoses Not on filedocumented in this encounter Care Teams Drafter Cartographic Relationship Specialty Start Date End Date Aleksandra Burgess MD PCP - General Internal Medicine 08/28/17 [facility], Pcp PCP - General Internal Medicine 07/12/22 documented as of this encounter
--- OUTSIDE RECORDS SUMMARY | 2025-05-27 01:38 | XMS_ITS | Encounter Summary ---
Author Organization [facility] Address [address] [place] [address] Care Team Providers Care Oracle Database Analyst Name Role Phone Aleksandra Burgess MD Primary Care Provider luz marina [facility], Pcp Primary Care Provider [facility] Encounter Details Date Type Department Care Team Description 06/27/2019 Hospital Medical Records [address] [place] [id number] Abdirahman Santiago MD Social History Tobacco Use [...] on filedocumented in this encounter Care Teams Oracle Database Analyst Relationship Specialty Start Date End Date Aleksandra Burgess MD PCP - General Internal Medicine 08/28/17 [facility], Pcp PCP - General Internal Medicine 07/12/22 documented as of this encounter
--- OUTSIDE RECORDS SUMMARY | 2025-05-27 01:38 | XMS_ITS | Encounter Summary ---
Author Organization [facility] Address [address] [place] [address] Care Team Providers Care Rehabilitation Services Counselor Name Role Phone Aleksandra Burgess MD Primary Care Provider [facility], Pcp Primary Care Provider [facility] e Reason for Visit * Reason Onset Date Comments refill request 03/04/2019 Encounter Details Date Type Department Care Team Description 03/04/2019 Refill Adult Medicine - [place] [address] [place] [address] Aleksandra Burgess MD refill request Social History [...] Telephone Encounter - Sara Hernandez M.A. - 03/04/2019 10:46 AM EDT Date of last office visit was 02/20/19 Lab Results Component Value Date NA 138 08/30/2018 K 4.4 08/30/2018 CO2 30 08/30/2018 CL 99 08/30/2018 BUN 12 08/30/2018 CREAT 0.78 08/30/2018 GLU 376 03/03/2019 CA 9.4 08/30/2018 GFR > 60 08/30/2018 * Telephone Encounter - Sara Hernandez M.A. - 03/04/2019 10:45 AM EDTFrom: Sarah Sanders To: Aleksandra Sanchez MD Sent: 03/04/2019 10:45 AM EDT Subject: Medication Renewal Request Original authorizing provider: MD Sarah Torres would like a refill of the following medications: omeprazole (PRILOSEC) 20 MG capsule [Aleksandra Sanchez MD] Preferred pharmacy: [id number] [place], [place] - [address] [facility] [address] Comment: documented in this encounter Plan of Treatment Not on file documented as of this encounter Visit Diagnoses Not on filedocumented in this encounter Care Teams Rehabilitation Services Counselor Relationship Specialty Start Date End Date Aleksandra Burgess MD PCP - General Internal Medicine 08/28/17 [facility], Pcp PCP - General Internal Medicine 07/12/22 documented as of this encounter
--- OUTSIDE RECORDS SUMMARY | 2025-05-27 01:38 | XMS_ITS | Encounter Summary ---
Author Organization [facility] Address [address] [place] [address] Care Team Providers Care Head Of Stock Name Role Phone Aleksandra Burgess MD Primary Care Provider [facility], Pcp Primary Care Provider [facility] e Reason for Visit * Reason Onset Date Comments refill request 09/05/2019 Encounter Details Date Type Department Care Team Description 09/05/2019 Refill Adult Medicine B - [address] [address] Monica Brown PA-C [address] [place] [id number] refill request Social History Tobacco Use Types Packs/Day Years Used Date Smoking Tobacco: Former Cigarettes 2 18 Smokeless Tobacco: Never Comments:quit ~ 1994 Alcohol Use Standard Drinks/Week Comments No 0 (1 standard drink = 0.6 oz pur e alcohol) Sex Assigned at Date Recorded Not on file documented as of this encounter Miscellaneous Notes * Telephone Encounter - Aleksandra Sanchez MD - 09/07/2019 11:16 AM EST Signed, thank you * Telephone Encounter - Sara Hernandez M.A. - 09/07/2019 11:13 AM EST Date of last office visit was 06/17/19. Pended appt for 10/05/19 Lab Results Component Value Date NA 133 06/02/2019 K 4.3 06/02/2019 CO2 31 06/02/2019 CL 96 06/02/2019 BUN 16 06/02/2019 CREAT 0.97 06/02/2019 GLU 209 06/02/2019 CA 9.3 06/02/2019 GFR 59 06/02/2019 documented in this encounter Plan of Treatment Not on file documented as of this encounter Visit Diagnoses Not on filedocumented in this encounter Care Teams Head Of Stock Relationship Specialty Start Date End Date Aleksandra Burgess MD PCP - General Internal Medicine 08/28/17 [facility], Pcp PCP - General Internal Medicine 07/12/22 documented as of this encounter
--- OUTSIDE RECORDS SUMMARY | 2025-05-27 01:38 | XMS_ITS | Encounter Summary ---
Author Organization [facility] Address [address] [place] [address] Care Team Providers Care Store Grocery Merchandiser Name Role Phone Aleksandra Burgess MD Primary Care Provider [facility], Pcp [facility] Reason for Visit * Reason Onset Date Comments medication problems 06/17/2019 Fluticasone- Salmeterol (AIRDUO RESPICLICK 113/14) 113-14 MCG/ACT AEROSOL POWDER,BREATH ACTIVATED Encounter Details Date Type Department Care Team Description 06/17/2019 Telephone Adult Medicine - [address] [address] Aleksandra Burgess MD medication problems (Fluticasone-Salmeterol (AIRDUO RESPICLICK 113/14) 113-14 MCG/ACT AEROSOL POWDER,BREATH ACTIVATED) Social History Tobacco Use Types Packs/Day Years Used Date Smoking Tobacco: Former Cigarettes 2 18 Smokeless Tobacco: Never Comments:quit ~ 1994 Alcohol Use Standard Drinks/Week Comments No 0 (1 standard drink = 0.6 oz pur e alcohol) Sex Assigned at Date Recorded Not on file documented as of this encounter Miscellaneous Notes * Telephone Encounter - Vaughn Harper M.A. - 06/17/2019 10:48 AM EST Patient is being seen now / please discuss medication change * Telephone Encounter - Steve Gage - 06/17/2019 9:56 AM EST Who is calling? A pharmacist: Pharmacy: [facility]ist Name: [facility] Name of the medication Fluticasone-Salmeterol (AIRDUO RESPICLICK 113/14) 113-14 MCG/ACT AEROSOL POWDER,BREATH ACTIVATED What is the specific problem or interaction? Pharmacy called and states that this medication is on back order from lead retail sales associate until 07/03. Pharmacy requesting an alternative to be sent If the patient is having a problem with taking the med - how long has the problem been going on? N/A documented in this encounter Plan of Treatment Not on file documented as of this encounter Visit Diagnoses Not on filedocumented in this encounter Care Teams Store Grocery Merchandiser Relationship Specialty Start Date End Date Aleksandra Burgess MD PCP - General Internal Medicine 08/28/17 [facility], Pcp PCP - General Internal Medicine 07/12/22 documented as of this encounter
--- OUTSIDE RECORDS SUMMARY | 2025-05-27 01:38 | XMS_ITS | Encounter Summary ---
Author Organization [facility] Address [address] [place] [address] Care Team Providers Care Logistics Planner Name Role Phone Aleksandra Burgess MD Primary Care Provider [facility], Pcp Primary Care Provider [facility] Encounter Details Date Type Department Care Team Description 03/10/2019 Pt. Non Urgent Medical Question Adult Urgent Care - [address] [address] Aydin Rendon MD Social History Tobacco Use Types Packs/Day Years Used Date Smoking Tobacco: Former Cigarettes 2 18 Smokeless Tobacco: Never Comments:quit ~ 1994 Alcohol Use Standard Drinks/Week Comments No 0 (1 standard drink = 0.6 oz pur e alcohol) Sex Assigned at Date Recorded Not on file documented as of this encounter Progress Notes * Ashley Morales L.P.N. - 03/11/2019 8:30 AM EDTFrom: Sarah Sanders To: Aydin Rendon MD Sent: 03/10/2019 5:20 PM EDT Subject: 10AM appointment with Gabriel Please let Gabriel know i won't be coming in tomorrow because of a conflict with my insurance coverage for the humalog documented in this encounter Plan of Treatment Not on file documented as of this encounter Visit Diagnoses Not on filedocumented in this encounter Care Teams Logistics Planner Relationship Specialty Start Date End Date Aleksandra Burgess MD PCP - General Internal Medicine 08/28/17 [facility], Pcp PCP - General Internal Medicine 07/12/22 documented as of this encounter
--- OUTSIDE RECORDS SUMMARY | 2025-05-27 01:38 | XMS_ITS | Encounter Summary ---
Author Organization [facility] [employer] [facility] Address [address] [place] [address] Care Team Providers Care Material Planner Name Role Phone Aleksandra Burgess MD Primary Care Provider luz marina [facility], Pcp Primary Care Provider [facility] Encounter Details Date Type Department Care Team Description 10/16/2017 Release of Information Medical Records [address] [place] [id number] Abstract, Provider Social History Tobacco Use Types Packs/Day Years [...] on filedocumented in this encounter Care Teams Material Planner Relationship Specialty Start Date End Date Aleksandra Burgess MD PCP - General Internal Medicine 08/28/17 [facility], Pcp PCP - General Internal Medicine 07/12/22 documented as of this encounter
--- OUTSIDE RECORDS SUMMARY | 2025-05-27 01:38 | XMS_ITS | Encounter Summary ---
Author Organization [employer] [facility] Address [address] [place] [address] Care Team Providers Care Monorail Operator Name Role Phone Aleksandra Burgess MD [facility] Primary [facility] Provider [facility] Encounter Details Date Type Department Care Team Description 06/25/2019 Orders Only Adult Medicine B [facility] [address] [place] [address] Aydin Rendon MD Social History Tobacco Use [...] on filedocumented in this encounter Care Teams Monorail Operator Relationship Specialty Start Date End Date Aleksandra Burgess MD PCP - General Internal Medicine 08/28/17 [facility], Pcp PCP - General Internal Medicine 07/12/22 documented as of this encounter
--- OUTSIDE RECORDS SUMMARY | 2025-05-27 01:38 | XMS_ITS | Encounter Summary ---
Author Organization [email or web address] [facility] Address [address] [place] [address] Care Team Providers Care Museum Specialist Name Role Phone Aleksandra Burgess MD [facility] Reason for Visit * Reason Onset Date Comments refill request 08/25/2019 Encounter Details Date Type Department Care Team Description 08/25/2019 Refill Adult Medicine [facility] [address] [place] [address] Aleksandra Burgess MD refill request Social History [...] on filedocumented in this encounter Care Teams Museum Specialist Relationship Specialty Start Date End Date Aleksandra Burgess MD PCP - General Internal Medicine 08/28/17 Pending [facility], Pcp PCP - General Internal Medicine 07/12/22 documented as of this encounter
--- OUTSIDE RECORDS SUMMARY | 2025-05-27 01:38 | XMS_ITS | Encounter Summary ---
Author Organization [facility] Address [address] [place] [address] Care Team Providers Care Garment Sorter Name Role Phone Aleksandra Burgess MD Primary Care Provider luz marina [facility], Pcp Primary Care Provider [facility] Encounter Details Date Type Department Care Team Description 10/01/2017 Transfer Records Medical Records [address] [place] [address] Abstract, Provider Social History Tobacco Use Types Packs/Day Years Used Date Smoking Tobacco: Never Alcohol Use Standard Drinks/Week Comments No 0 (1 standard drink = 0.6 oz pur e alcohol) Sex Assigned at Date Recorded Not on file documented as of this encounter Nursing Notes * Nancy Jones - 10/01/2017 11:59 AM EDT Transfer Records from Byron Johnson MD sent to Yara Hitchcock R.N. Lead Generation Representative. documented in this encounter Plan of Treatment Not on file documented as of this encounter Visit Diagnoses Not on filedocumented in this encounter Care Teams Garment Sorter Relationship Specialty Start Date End Date Aleksandra Burgess MD PCP - General Internal Medicine 08/28/17 [facility], Pcp PCP - General Internal Medicine 07/12/22 documented as of this encounter
== END 2025-05-26 13:37 | disposition home or self-care (01) ==
LOC: HO.US 13:36
PROVIDERS: PCP Student in an Organized Health Care Education/Training Program; Visit Provider Surgery Vascular Surgery
DX: I83.12 Varicose veins of left lower extremity with inflammation (principal)
CPT/HCPCS: 93970

== ENCOUNTER → 2025-05-26 13:38 | Outpatient (BNV) | payer MEDICARE, SELFPAY | PROVIDERS: PCP Student in an Organized Health Care Education/Training Program; Visit Provider Radiology Diagnostic Radiology | DX: I83.12 Varicose veins of left lower extremity with inflammation (principal) | CPT/HCPCS: 93970 ==

== ENCOUNTER → 2025-06-30 09:50 | Outpatient (REF) | payer MEDICARE, SELFPAY ==
--- OUTSIDE RECORDS SUMMARY | 2025-06-30 09:56 | XMS_ITS | Clinical Summary ---
Author Organization [facility] Address [address] [place] [address] Care Team Providers Care Slime Plant Operator Helper Name Role Phone Aleksandra Sanchez MD Primary Care Provider Surgical History Surgery Date Site/Laterality Comments COLONOSCOPY 09/21/2016 PROCEDURE: HISTORICAL COLONOSCOPY; COMMENT: Sessile polyp, diverticulosis. Repeat [address] [place] HERNIA REPAIR 10/29/2016 PROCEDURE: HISTORICAL HERNIA REPAIR/DEEPAK; COMMENT: repair multiple incarcerated recurrent incisonal hernias SECTION PROCEDURE: HISTORICAL UPPER GASTROINTESTINAL ENDOSCOPY 09/21/2016 PROCEDURE: UPPER GI ENDOSCOPY/EXAM; COMMENT: Normal HERNIA REPAIR 11/2014 PROCEDURE: HISTORICAL HERNIA REPAIR/UMB PARTIAL HYSTERECTOMY 1999 PROCEDURE: ID SUPRACERVICAL ABDL HYSTER W/WO RMVL TUBE OVARY; [...] DX:STEMI (ST el evation myocardial infarction) ([facility]); COMMENT: [place] PCI. 99% mid RCA [...] on file Sexual Orientation Not on file Plan of Treatment Health Maintenance Due Date [...] Blood Sugar Contro l Test (HGBA1C) 05/09/2024 Hepatitis C Screening 05/09/2024 Hypertension/CHF/CAD Annual BMP Blood Test 05/09/2024 Osteoporosis Screening (Bone Density Screening) 05/09/2024 Social Influencers of Health Screening 05/09/2024 Depression Screening 07/08/2024 COVID-19 Vaccine (1 - 2024-2 6 season) 2025 Influenza Vaccine (#1) 2025 Falls Risk Assessment 2025 DTaP,Tdap,and Td Vaccines (2 - Td [...] Recently Relevant to Health Maintenance Care Teams Slime Plant Operator Helper Relationship Specialty Start Date End Date Aleksandra Sanchez MD PCP - General Internal Medicine 08/28/17
== END ==
LOC: HO.SL 09:50
PROVIDERS: PCP Student in an Organized Health Care Education/Training Program; Visit Provider Student in an Organized Health Care Education/Training Program
DX: I25.10 Atherosclerotic heart disease of native coronary artery without angina pectoris (principal); G47.10 Hypersomnia, unspecified; R06.83 Snoring; R53.83 Other fatigue; E11.9 Type 2 diabetes mellitus without complications; Z79.4 Long term (current) use of insulin; Z79.84 Long term (current) use of oral hypoglycemic drugs; Z79.85 Long-term (current) use of injectable non-insulin antidiabetic drugs; Z79.82 Long term (current) use of aspirin; Z79.899 Other long term (current) drug therapy
CPT/HCPCS: 93005; 99202

== ENCOUNTER 2025-06-30 10:17 | Outpatient (AMB) | payer MEDICARE, SELFPAY ==
[2025-06-30 10:23] VITALS: BP 122/68; PULSE 67; BMI 30.1
--- NOTE | 2025-06-30 10:23 | MHC.OFFVIS ---
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 [place] Allergies Seasonal Allergies Allergy (Mild, Verified 06/30/25 10:30) Sneezing Medication List - Last Reconciled 06/30/25 by Ian Horton MD alprazolam 0.5 mg PO BEDTIME PRN ammonium lactate 12% (AmLactin) 1 appl topical DAILY aspirin 81 mg PO DAILY atorvastatin 80 mg PO DAILY carvedilol 6.25 mg PO BID [Diabetic shoes Please dispense diabetic shoes with 3 pairs of custom molded inserts.] ferrous sulfate (FeroSul) 325 mg PO fluoxetine 20 mg PO DAILY fluticasone propion-salmeterol 250-50 mcg/dose (Advair Diskus) 1 inh inhalation BID losartan 25 mg PO DAILY metformin ER 1,000 mg PO BID omeprazole 20 mg PO DAILY tirzepatide (Mounjaro) 15 mg subcut QWEEK HPI Comments Details: Sarah is here for cardiac consultation. History of coronary artery disease and she was living in [place] but has moved here recently. History of type 2 diabetes, hypertension, dyslipidemia. Had inferior STEMI 2019 status post PCI to RCA. Another STEMI in 2021 involving the LAD treated in [place]. After that, she states she has generally been doing okay. She does not have any exertional angina or in fact any other cardiac symptoms. She has relocated back to [place] and hence seeking cardiology care. [facility] Medical History (Updated 06/30/25 @ 10:45 by Ian Horton MD) Atherosclerotic cardiovascular disease Detached retina, right Fatigue Snoring Varicose veins of ankle Diabetes type 2 History of myocardial infarction Surgical History History of coronary artery stent placement Family History Father High blood pressure Mother Diabetes High blood pressure Colon cancer Liver cancer Social History Housing: House Alcohol intake: current Alcohol intake frequency: does not drink Patient Tobacco Use Status: Never used Tobacco service: No Current occupational status: retired Cognitive needs: No Hearing needs: No Vision needs: Yes (reading glasses) Review of Systems Const Denies weakness ENT Denies dizziness Card Denies chest pain, Denies chest pain with activity, Denies syncope, Denies rapid heart rate, Denies pedal edema, Denies edema, Denies leg edema, Denies lightheadedness, Reports palpitations, Denies dyspnea, Denies dyspnea on exertion and Denies orthopnea Resp Denies cough, Denies dyspnea and Denies dyspnea on exertion GI Denies hematochezia and Denies change in stool character Musc Denies abnormal gait, Denies muscle cramps, Denies muscle weakness, Denies numbness, Denies radiating pain into limb and Denies tingling Neuro Denies abnormal gait, Denies dizziness, Denies syncope, Denies numbness, Denies tingling and Denies weakness Endo Reports palpitations Physical Exam Vital Signs: Last Vital Signs Pulse 67 06/30/25 10:23 BP 122/68 06/30/25 10:23 BMI result Body Mass Index 30.1 Const General: comfortable and no acute distress Orientation/consciousness: patient oriented x3 HEENT Other: Unremarkable Head: Yes normal to inspection Neck Neck: Yes normal visual inspection Chest Chest palpation & inspection: normal inspection of the chest Resp Auscultation: clear to auscultation bilaterally Cardio Palpation: normal PMI Heart sounds: S1 normal heart sound present, S2 normal heart sound present, no gallops, no murmurs and no rubs GI Palpation (GI): Soft to palpation Back/Spine/Pelvis Other: unremarkable Skin General skin exam: no rashes or lesions noted Neuro General: patient oriented x3 Extrem General: Yes normal to inspection Psych Mental Status: mental status grossly normal Office Procedures EKG Details: EKG with underlying sinus rhythm at 67/Min; nonspecific ST-[place] changes; [place] [id number], Complete Assessment & Plan Assessment & Plan (1) Atherosclerotic cardiovascular disease: Code(s): I25.10 - Atherosclerotic heart disease of [place] coronary artery without angina pectoris Category: Medical Plan: Per most recent cardiac catheterization 2021, STEMI involving LAD status post PCI. Mostly nonobstructive disease elsewhere. Lexiscan perfusion imaging study from 10/2024 with no ischemia. LVEF 70%. Normal wall motion. Overall, treat for stable coronary disease. Continue aspirin, beta-blockers, statins. LDL is higher than target. Zetia was in the med list but not clear if she is actually taking or not. May resume. Recheck lipids in due course. (2) Diabetes type 2: Code(s): E11.9 - Type 2 diabetes mellitus without complications Category: Medical Qualifiers: Diabetes mellitus half-way insulin use: with ad terminal makeup operator use Diabetes mellitus complication status: without complication Qualified Code(s): E11.9 - Type 2 diabetes mellitus without complications; Z79.4 - intermodal customer service (current) use of insulin Plan: Listed to be on metformin and tirzepatide. Hemoglobin A1c is 6.9%. Plan I reviewed the patient's cardiac history, including two prior myocardial infarctions treated with stents. I noted that her current EKG showed only nonspecific findings and that her symptoms and recent stress test are reassuring. I explained the rationale for ordering a baseline echocardiogram to assess her heart function as she is a new patient. We discussed her elevated LDL cholesterol of 109 mg/dL and the likely contributing factor of discontinuing her prior cholesterol medication. I recommended restarting ezetimibe, and the patient agreed. I advised her that her other physician will recheck her lab work in a few months. We agreed on a six-month follow-up interval. Patient was informed and verbally consented to the use of an ambient scribe for clinic note documentation during this visit. Total time spent including review of outside records, counseling, documentation, coordination of care-47 minutes. Orders: Orders CA echo transthoracic complete Today I25.10 - Atherosclerotic heart disease of [place] coronary artery without angina pectoris Medications: New ezetimibe (Zetia) 10 mg PO DAILY 90 tabs 1RF Coding Level of Care Code New Pt Level 4 (37872) Add On Problem Visit Only Diagnoses Atherosclerotic cardiovascular disease I25.10 Type 2 diabetes mellitus without complication, with long-term current use of insulin E11.9; Z79.4 Diabetes mellitus half-way insulin use: with half-way use Diabetes mellitus complication status: without complication CPT Codes EKG - CPT: 27935-[id number], Complete ([id number])
== END 2025-06-30 10:49 | disposition home or self-care (01) ==
LOC: HO.HCS 10:18
PROVIDERS: PCP Student in an Organized Health Care Education/Training Program; Visit Provider Internal Medicine
DX: I25.10 Atherosclerotic heart disease of native coronary artery without angina pectoris (principal); E11.9 Type 2 diabetes mellitus without complications; Z79.4 Long term (current) use of insulin
CPT/HCPCS: 93010; 99204; G2211

== ENCOUNTER → 2025-07-03 10:08 | Outpatient (BNV) | payer MEDICARE, SELFPAY | PROVIDERS: PCP Student in an Organized Health Care Education/Training Program; Visit Provider Psychiatry & Neurology Neurology | DX: G47.33 Obstructive sleep apnea (adult) (pediatric) (principal); G47.10 Hypersomnia, unspecified | CPT/HCPCS: 95806 ==